=== PATIENT | male | born 1940 | race Caucasian/White ===

== ENCOUNTER → 2016-12-12 | Outpatient (CLI) | payer MEDICARE, BC ==
[2016-12-12 11:12] LABS: Basophils % (A) 1 %; CH 27.9; CHCM 32.6; Eosinophils # (A) 0.5 k/uL (0-0.7); Eosinophils % (A) 8 %; HCT 43.8 % (39.0-53.0); HDW 2.71; Luc # (Auto) 0.13; Luc % (Auto) 2; Lymphocytes # (A) 0.9 k/uL (1.0-4.8); Lymphocytes % (A) 14 %; MCH 27.6 pg (25.0-35.0); MCV 86.1 fL (80.0-100.0); Mean Platelet Volume 7.4; Monocytes # (A) 0.4 k/uL (0-1.0); Monocytes % (A) 6 %; Neutrophils # (A) 4.3 k/uL (1.3-7.7); Neutrophils % (A) 69 %; RBC 5.09 m/uL (4.30-5.90); RDW 13.6 % (11.5-15.5); WBC 6.2 k/uL (3.8-10.6); WBC (Perox) 6.21
[2016-12-12 11:25] LABS: Total Bilirubin 0.8 mg/dL (0.2-1.3)
== END | disposition home or self-care (01) ==
LOC: LABWHC1 10:32
PROVIDERS: ATTEND Dermatology
DX: L40.9 Psoriasis, unspecified (principal)
CPT/HCPCS: 36415; 82247; 82465; 84460; 84478; 85025

== ENCOUNTER → 2017-03-19 | Outpatient (CLI) | payer MEDICARE, BC ==
[2017-03-19 10:40] LABS: Appearance,Urine Clear (Clear); Bacteria,Urine Rare /hpf; Bilirubin,Urine Negative (Negative); Glucose,Urine (UA) Negative (Negative); Ketones,Urine Negative (Negative); Leukocyte Esterase,Urine Trace (Negative); Nitrite,Urine Negative (Negative); Particle Count 517; Protein,Urine Negative (Negative); RBC,Urine 1 /hpf (0-5); Specific Gravity,Urine 1.009 (1.001-1.035); UA Billing (MACRO vs. MICRO) MICRO; Urobilinogen,Urine <2.0 mg/dL (<2.0); WBC,Urine 1 /hpf (0-5)
[2017-03-19 10:45] LABS: Basophils # (A) 0.1 k/uL (0-0.2); Basophils % (A) 1 %; CH 28.1; CHCM 32.5; Eosinophils # (A) 0.8 k/uL (0-0.7); Eosinophils % (A) 14 %; HCT 43.9 % (39.0-53.0); HDW 2.68; HGB 14.1 gm/dL (13.0-17.5); Luc # (Auto) 0.16; Luc % (Auto) 3; Lymphocytes # (A) 0.9 k/uL (1.0-4.8); Lymphocytes % (A) 15 %; MCH 27.8 pg (25.0-35.0); MCV 86.7 fL (80.0-100.0); Mean Platelet Volume 7.4; Monocytes # (A) 0.4 k/uL (0-1.0); Monocytes % (A) 6 %; Neutrophils # (A) 3.6 k/uL (1.3-7.7); Neutrophils % (A) 62 %; RBC 5.07 m/uL (4.30-5.90); RDW 13.7 % (11.5-15.5); WBC 5.8 k/uL (3.8-10.6); WBC (Perox) 5.91
[2017-03-19 12:29] LABS: ALT 30 U/L (21-72); AST 33 U/L (17-59); Alkaline Phosphatase 77 U/L (38-126); Anion Gap 9 mmol/L; Blood Urea Nitrogen 9 mg/dL (9-20); Carbon Dioxide 29 mmol/L (22-30); Chloride 104 mmol/L (98-107); Glucose 108 mg/dL (74-99); Non-African American GFR(MDRD) >60 (>60 ml/min/1.73 sqM); Potassium 4.8 mmol/L (3.5-5.1); Sodium 142 mmol/L (137-145); Total Bilirubin 0.6 mg/dL (0.2-1.3)
--- NOTE | 2017-03-19 12:32 | XR ---
EXAMINATION TYPE: XR chest 2V DATE OF EXAM ORDERED: 03/19/2017 10:41 AM HISTORY: R05 cough. REFERENCE: None. FINDINGS: The lungs are clear. Pleural spaces are clear. Heart size is normal. IMPRESSION: NORMAL CHEST.
== END | disposition home or self-care (01) ==
LOC: LABPAT 09:14
PROVIDERS: ATTEND Urology
DX: Z01.818 Encounter for other preprocedural examination (principal); C64.2 Malignant neoplasm of left kidney, except renal pelvis; R05 Cough
CPT/HCPCS: 36415; 71020; 80053; 80061; 80076; 81001; 85025; 85652; 86850; 86900; 86901; 87086; 93005

== ENCOUNTER → 2017-03-19 | Outpatient (CLI) | payer MEDICARE, BC ==
[2017-03-19 18:18] LABS: Bilirubin, Delta 0.2 mg/dL (0.0-0.2); Total Bilirubin 0.4 mg/dL (0.2-1.3); Total Protein 6.7 g/dL (6.3-8.2)
== END | disposition home or self-care (01) ==
LOC: LABWHC1 09:16
PROVIDERS: ATTEND Dermatology
DX: L44.0 Pityriasis rubra pilaris (principal)
CPT/HCPCS: 36415; 80061; 80076; 85652

== ENCOUNTER 2017-03-26 06:01 | Inpatient (IN) | payer MEDICARE, BC ==
[~2017-03-26 06:01] MED LIST: FAMOTIDINE 20 MG/2 ML VIAL IV PRN; HYDROmorphone 1 MG/ML 1 ML SYRINGE IVP PRN; LIDOCAINE 1% 20 ML VIAL (10MG/ML) FOR IV START INTRADERMA PRN; MIDAZOLAM 2 MG/2 ML VIAL IV PRN; ONDANSETRON 4 MG/2 ML VIAL IVP ONE; Pre Op ABX Message 1 EACH MISC MISCELLANE ONE
[2017-03-26 06:55] LABS: Glucose,Whole Blood 100 mg/dL (75-99)
[2017-03-26] MEDS: LACTATED RINGERS 1,000 ML IV SCH (06:57)
[2017-03-26] MEDS ORDERED: MIDAZOLAM 2 MG/2 ML VIAL IVP ONE ×2 (07:10→07:34)
[2017-03-26] MEDS ORDERED: fentaNYL (PF) 50 MCG/ML 2 ML AMP IV ONE ×2 (07:12→07:34)
[2017-03-26] MEDS ORDERED: NALOXONE 0.4 MG/ML 1 ML VIAL IV PRN (07:26)
[2017-03-26] MEDS ORDERED: ONDANSETRON 4 MG/2 ML VIAL IVP ONE (07:30)
[2017-03-26] MEDS ORDERED: LIDOCAINE 1% INJ 10MG/ML (20 ML MDV) ONE (07:36)
[2017-03-26] MEDS ORDERED: PHENYLEPHRINE-0.9% NACL SYG 1 MG/10 ML SYRINGE ONE (07:36)
[2017-03-26] MEDS ORDERED: ROCURONIUM BROMIDE 10 MG/ML 10 ML VIAL IV ONE (07:36)
[2017-03-26] MEDS ORDERED: PROPOFOL 10 MG/ML 20 ML VIAL IV ONE (07:36)
[2017-03-26] MEDS ORDERED: ePHEDrine 50 MG/ML 1 ML AMP ONE (07:36)
[2017-03-26] MEDS ORDERED: SUCCINYLCHOLINE CHLORIDE 100 MG/5 ML SYR IV ONE (07:36)
[2017-03-26] MEDS ORDERED: LACTATED RINGERS 1,000 ML IV ONE ×2 (08:10→08:59)
--- NOTE | 2017-03-26 09:46 | P.OP ---
Date of Procedure: 03/26/17 Preoperative Diagnosis: Left renal mass Postoperative Diagnosis: Same Procedure(s) Performed: Left radical nephrectomy Implants: Anesthesia: GETA, epidural Surgeon: Lee Tucker Process Chemist #1: Nikko Moon Estimated Blood Loss (ml): 200 Pathology: other (Left kidney) Condition: stable Disposition: PACU Indications for Procedure: The patient is a 76-year-old gentleman who was at [facility] for evaluation and treatment of a skin disease. During the evaluation a computed tomography scan of the abdomen was obtained and a 5 cm mid renal mass extending into the renal hilum was identified. This was consistent with a renal cell carcinoma. He came to me as I am his urologist. We discussed and reviewed the computed tomography scan. He has a normal right kidney with good kidney function. He comes for a right radical nephrectomy. Operative Findings: Description of Procedure: The patient is brought to the operating suite and given a successful general endotracheal and anesthesia on the operating table. In the preop holding he was given an epidural anesthetic for perioperative and intraoperative pain control. Lew catheter is introduced sterilely. He is prepped and draped sterilely. A left subcostal incision is made. The rectus and oblique fascias are opened and the peritoneum is opened. The left colon is retracted medially by incising the white line of Toldt and then the neck of tissue between the colon and the gerotas fascia. We pull with then used the Bookwalter retractor for retraction. We identify the aorta, left renal vein and left gonadal vein. Place a 2-0 silk around the left renal vein. Inferior to the left renal vein as a left renal artery and we identify this and doubly ligated in 2-0 silk ties and a 2-0 silk suture ligature. Then doubly ligate the left renal vein again using 2-0 silk ties and 2-0 silk suture ligatures. I then cut both the artery and the vein. The cutting the vein I identified the left adrenal vein and placed 2-0 silk ties around it and transected. He then dissect superiorly alongside the aorta and then inferior to the adrenal gland through connective tissue, lymph yasir tissue and Gerota's fascia. In December inferiorly down the psoas margin and aorta removing lymph yaisr tissue with the specimen. We identified the left ureter and taken between hemoclips. We then identify the left gonadal vein and taken between 2-0 silk ties. We then dissect the kidney and drug's off the body wall. We move up the left lateral gutter until we identified the renal spleen ligaments. He is taken between clips. We then moved inferior to the pancreas and dissected the drug's off the body wall and the pancreas and remove the kidney from the wound. He was minimal bleeding throughout. We'll control minimal bleeding with electrocautery or hemoclips. There is no active bleeding thus we allow the colon to fall back up in the left upper quadrant. The omentum was pulled over it. The wounds closed in 2 layers of #1 Vicryl and the skin is stapled. The patient's awake and returned recovery in good condition. Blood loss is approximately 200 mL. Patient will be placed in the hospital postoperatively.
[2017-03-26] MEDS ORDERED: HYDROmorphone 1 MG/ML 1 ML SYRINGE IVP ONE (10:06)
[2017-03-26] MEDS: BUPIVACAINE (PF) 0.5% 50 ML, HYDROMORPHONE (PF) 5 MG in SODIUM CHLORIDE 0.9% 200 ML EPIDURAL PRN (10:18)
[2017-03-26 11:50] LABS: Glucose,Whole Blood 116 mg/dL (75-99)
[2017-03-26 11:57] VITALS: BMI 30.8
[2017-03-26] MEDS: INSULIN LISPRO (humaLOG) 300 UNIT/3 ML VIAL SQ SCH ×3 (12:52→20:30)
[2017-03-26] MEDS: SODIUM CHLORIDE 0.45% 1,000 ML IV SCH ×2 (16:24→16:27)
[2017-03-26] MEDS: TRIAMCINOLONE 0.1% CREAM 80 GM TUBE TOPICAL SCH (16:30)
[2017-03-26 17:07] LABS: Glucose,Whole Blood 134 mg/dL (75-99)
[2017-03-26] MEDS: LISINOPRIL 2.5 MG TAB PO SCH (20:24)
[2017-03-26] MEDS: DOXAZOSIN 4 MG TAB PO SCH (20:24)
[2017-03-26] MEDS: ATORVASTATIN 80 MG TAB PO SCH (20:24)
[2017-03-26 20:32] LABS: Glucose,Whole Blood 130 mg/dL (75-99)
--- NOTE | 2017-03-27 06:33 | P.PN ---
Subjective The patient underwent a left radical nephrectomy yesterday for left renal mass probable renal cell carcinoma. He did well overnight. His vital signs are stable. His urine output is good. His pain is controlled with the epidural. His incision is dry. His his abdomen is soft. I will continue with the epidural and liquid diet. He will start to ambulate. Objective - Vital Signs Vital signs: Vital Signs Temp 97.2 F L 03/27/17 01:08 Pulse 113 H 03/27/17 01:08 Resp 16 03/27/17 01:08 BP 109/53 03/27/17 01:08 Pulse Ox 95 03/27/17 01:08 Intake & Output 03/26/17 03/26/17 03/27/17 06:59 18:59 06:59 Intake Total 450 2150 1200 Output Total 610 200 Balance 450 1540 1000 Weight 92 kg Intake: IV 450 1850 Intake, IV Titration 1200 Amount Sodium Chloride 0.45% 1, 1200 000 ml @ 100 mls/hr IV . Q10H [facility] Rx#:[id number] Oral 300 Output: Urine 410 200 Estimated Blood Loss 200 Other: Voiding Method Indwelling Catheter Indwelling Catheter - Labs Labs: Abnormal Lab Results - Last 24 Hours (Table) 03/26/17 03/26/17 03/26/17 Range/Units 06:47 11:32 17:05 POC Glucose (mg/dL) 100 H 116 H 134 H (75-99) mg/dL 03/26/17 Range/Units 20:29 POC Glucose (mg/dL) 130 H (75-99) mg/dL
[2017-03-27 07:10] LABS: Glucose,Whole Blood 122 mg/dL (75-99)
[2017-03-27] MEDS: INSULIN LISPRO (humaLOG) 300 UNIT/3 ML VIAL SQ SCH ×3 (08:34→17:50)
[2017-03-27] MEDS: metFORMIN 850 MG TAB PO SCH (08:39)
[2017-03-27] MEDS: TRIAMCINOLONE 0.1% CREAM 80 GM TUBE TOPICAL SCH ×2 (08:39→21:19)
[2017-03-27] MEDS: LISINOPRIL 2.5 MG TAB PO SCH ×2 (08:39→21:19)
[2017-03-27] MEDS: SODIUM CHLORIDE 0.45% 1,000 ML IV SCH ×2 (08:42→15:42)
[2017-03-27] MEDS: LACTATED RINGERS 1,000 ML IV SCH (10:44)
--- NOTE | 2017-03-27 11:22 | P.PN ---
Progress Note - Text Postoperative day 1 status post left radical nephrectomy under general endotracheal anesthesia, and epidural catheter placement for postoperative analgesia, he is doing well, vital signs stable, currently he is on continuous infusion of bupivacaine/Dilaudid at 6 mL per hour, his VAS 0/10 , he had no motor deficit, epidural site okay, Assessment and plan= postoperative day one the decreased with pain control will continue the same management
[2017-03-27 11:33] LABS: Glucose,Whole Blood 162 mg/dL (75-99)
[2017-03-27 14:25] LABS: Calcium 9.3 mg/dL (8.4-10.2); Potassium 5.1 mmol/L (3.5-5.1)
[2017-03-27 16:33] LABS: Glucose,Whole Blood 135 mg/dL (75-99)
[2017-03-27] MEDS: ATORVASTATIN 80 MG TAB PO SCH (21:19)
[2017-03-27] MEDS: DOXAZOSIN 4 MG TAB PO SCH (21:19)
[2017-03-27 21:27] LABS: Glucose,Whole Blood 116 mg/dL (75-99)
[2017-03-27] MEDS: BUPIVACAINE (PF) 0.5% 50 ML, HYDROMORPHONE (PF) 5 MG in SODIUM CHLORIDE 0.9% 200 ML EPIDURAL PRN (21:51)
[2017-03-28] MEDS: INSULIN LISPRO (humaLOG) 300 UNIT/3 ML VIAL SQ SCH ×4 (00:49→17:26)
[2017-03-28 06:59] LABS: Glucose,Whole Blood 96 mg/dL (75-99)
[2017-03-28] MEDS: SODIUM CHLORIDE 0.45% 1,000 ML IV SCH ×2 (07:19→11:43)
[2017-03-28] MEDS ORDERED: MORPHINE SULFATE 2 MG/ML SYRINGE IVP PRN (07:43)
[2017-03-28 08:21] LABS: Basophils % (A) 0 %; CHCM 32.5; Eosinophils # (A) 0.2 k/uL (0-0.7); Eosinophils % (A) 2 %; HCT 38.5 % (39.0-53.0); HDW 2.64; HGB 12.5 gm/dL (13.0-17.5); Luc # (Auto) 0.17; Luc % (Auto) 2; Lymphocytes # (A) 0.7 k/uL (1.0-4.8); Lymphocytes % (A) 6 %; MCHC 32.4 g/dL (31.0-37.0); MCV 86.5 fL (80.0-100.0); Mean Platelet Volume 7.5; Monocytes # (A) 0.6 k/uL (0-1.0); Monocytes % (A) 5 %; Neutrophils # (A) 9.6 k/uL (1.3-7.7); Neutrophils % (A) 86 %; RBC 4.45 m/uL (4.30-5.90); RDW 13.9 % (11.5-15.5); WBC 11.2 k/uL (3.8-10.6); WBC (Perox) 11.38
[2017-03-28] MEDS: LISINOPRIL 2.5 MG TAB PO SCH ×2 (08:22→21:19)
[2017-03-28] MEDS: metFORMIN 850 MG TAB PO SCH (08:22)
[2017-03-28] MEDS: TRIAMCINOLONE 0.1% CREAM 80 GM TUBE TOPICAL SCH (08:27)
--- NOTE | 2017-03-28 08:46 | P.PN ---
Progress Note - Text Date: 03-28-17 Time: 715 The patient is status post left radical nephrectomy, postoperative day number[ 2] The patient has no complaints of nausea vomiting or headache. The patient does not complain of any lower extremity numbness or weakness. The epidural is running at 6 mL per hour. The epidural will be discontinued this a.m. per Dr. Tucker. Pain medicines will be provided to the patient by the service.
[2017-03-28 11:30] LABS: Glucose,Whole Blood 120 mg/dL (75-99)
[2017-03-28 17:27] LABS: Glucose,Whole Blood 112 mg/dL (75-99)
[2017-03-28] MEDS: ATORVASTATIN 80 MG TAB PO SCH (21:19)
[2017-03-28] MEDS: DOXAZOSIN 4 MG TAB PO SCH (21:19)
[2017-03-28 21:38] LABS: Glucose,Whole Blood 112 mg/dL (75-99)
[2017-03-29] MEDS: TRIAMCINOLONE 0.1% CREAM 80 GM TUBE TOPICAL SCH ×3 (05:03→20:39)
[2017-03-29] MEDS: INSULIN LISPRO (humaLOG) 300 UNIT/3 ML VIAL SQ SCH ×5 (05:03→20:56)
[2017-03-29] MEDS: SODIUM CHLORIDE 0.45% 1,000 ML IV SCH ×5 (05:04→16:17)
[2017-03-29 07:09] LABS: Glucose,Whole Blood 112 mg/dL (75-99)
[2017-03-29] MEDS: metFORMIN 850 MG TAB PO SCH (09:00)
[2017-03-29] MEDS: LISINOPRIL 2.5 MG TAB PO SCH ×2 (09:00→20:39)
--- NOTE | 2017-03-29 09:40 | P.PN ---
Progress Note - Text Patient is postop day #2 following left radical nephrectomy. He is afebrile and normotensive. His epidural catheter was removed yesterday and he says that he remains comfortable. He is tolerating liquids and a diet. His glucose this morning was 112. He denies any shortness of breath or chest pain. He does have some pedal edema which has been chronic. He required in and out catheterization yesterday which drained 400 mL but has been voiding this morning. A bladder scan will be checked to ensure that he is emptying his bladder completely. Physical exam: Abdomen-somewhat distended with gas. Incision is uninflamed. Ommy-wrtr-la-moderate pretibial edema. No calf tenderness Impression: Good recovery so far following left radical nephrectomy. Plan: The patient's diet and activity will be increased. It is planned that the patient will be discharged to a rehab facility on 03/31.
[2017-03-29] MEDS: ERYTHROMYCIN 0.5% EYE OINTMENT BOTH EYES SCH (10:35)
[2017-03-29] MEDS ORDERED: Acetaminophen-Codeine 300-30mg TAB PO PRN (10:54)
[2017-03-29] MEDS: ACITRETIN 25 MG PO SCH ×3 (11:29→11:36)
[2017-03-29] MEDS: ACITRETIN PO SCH ×2 (11:29→11:35)
[2017-03-29 11:34] LABS: Glucose,Whole Blood 114 mg/dL (75-99)
[2017-03-29] MEDS: TAMSULOSIN 0.4 MG CAP.ER.24H PO SCH (16:15)
[2017-03-29] MEDS: DOCUSATE 100 MG CAP PO SCH (16:16)
[2017-03-29 16:40] LABS: Glucose,Whole Blood 105 mg/dL (75-99)
[2017-03-29 20:14] LABS: Glucose,Whole Blood 96 mg/dL (75-99)
[2017-03-29] MEDS: DOXAZOSIN 4 MG TAB PO SCH (20:39)
[2017-03-29] MEDS: ATORVASTATIN 80 MG TAB PO SCH (20:39)
[2017-03-30 06:56] LABS: Glucose,Whole Blood 99 mg/dL (75-99)
[2017-03-30] MEDS: INSULIN LISPRO (humaLOG) 300 UNIT/3 ML VIAL SQ SCH ×4 (08:15→21:54)
[2017-03-30] MEDS: LISINOPRIL 2.5 MG TAB PO SCH ×2 (08:30→21:11)
[2017-03-30] MEDS: TRIAMCINOLONE 0.1% CREAM 80 GM TUBE TOPICAL SCH ×2 (08:30→21:12)
[2017-03-30] MEDS: DOCUSATE 100 MG CAP PO SCH ×2 (08:30→21:11)
[2017-03-30] MEDS: metFORMIN 850 MG TAB PO SCH (08:30)
[2017-03-30] MEDS: ERYTHROMYCIN 0.5% EYE OINTMENT BOTH EYES SCH (08:30)
[2017-03-30] MEDS: TAMSULOSIN 0.4 MG CAP.ER.24H PO SCH (08:30)
--- NOTE | 2017-03-30 10:22 | P.PN ---
Progress Note - Text Patient is afebrile. Blood pressure 140/69. The patient remains comfortable although he has not been ambulating much. He is tolerating a diet. He has no shortness of breath or cough. FBS this morning was 95. The patient's catheter was removed yesterday but his postvoid residuals again rising and a catheter was reinserted. The patient was started on tamsulosin. Abdomen: Obese but soft. There is some slight erythema and swelling in the lateral portion of the incision. There is no definite fluctuance and no discharge from this area. It's unclear whether this is an early wound infection or a seroma. Impression: #1 postoperative urinary retention #2 possible wound infection versus seroma Plan: He will be continued on tamsulosin and his catheter will be removed in the morning. Postvoid residual be checked later in the day. His wound will be reexamined tomorrow and if there is more induration than the incision may be opened slightly.
[2017-03-30] MEDS: SODIUM CHLORIDE 0.45% 1,000 ML IV SCH (11:03)
[2017-03-30 11:18] LABS: Glucose,Whole Blood 106 mg/dL (75-99)
[2017-03-30 16:35] LABS: Glucose,Whole Blood 102 mg/dL (75-99)
[2017-03-30] MEDS: DOXAZOSIN 4 MG TAB PO SCH (21:11)
[2017-03-30] MEDS: ATORVASTATIN 80 MG TAB PO SCH (21:11)
[2017-03-30 21:27] LABS: Glucose,Whole Blood 111 mg/dL (75-99)
[2017-03-31 07:35] LABS: Glucose,Whole Blood 90 mg/dL (75-99)
--- NOTE | 2017-03-31 07:40 | P.PN ---
Subjective Principal diagnosis: The patient is postop left radical nephrectomy. He is slowly recuperating. Started to ambulate yesterday. He had 3 good bowel movement chest today. The left lateral incision is slightly erythematous and swollen but there is no fluctuance. I will continue to observe this. equipment services associate will be contacted to aid in this patient's postoperative care as he probably will need rehab. He doesn't feel he can care for himself as he lives alone. I will discontinue his Lew. His pathology report showed a renal cell carcinoma with negative lymph node. Objective - Vital Signs Vital signs: Vital Signs Temp 98.1 F 03/31/17 03:25 Pulse 79 03/31/17 03:25 Resp 16 03/31/17 03:25 BP 144/71 03/31/17 03:25 Pulse Ox 93 L 03/31/17 03:25 Intake & Output 03/30/17 03/31/17 03/31/17 18:59 06:59 18:59 Intake Total 836 Output Total 2300 1300 Balance -1464 -1300 Intake: Oral 836 Output: Urine 2300 1300 Straight 300 Other: Voiding Method Indwelling Catheter # Bowel Movements 1 - Labs CBC & Chem 7: 03/28/17 08:06 03/27/17 07:04 Labs: Abnormal Lab Results - Last 24 Hours (Table) 03/30/17 03/30/17 03/30/17 Range/Units 11:10 16:30 21:25 POC Glucose (mg/dL) 106 H 102 H 111 H (75-99) mg/dL
[2017-03-31] MEDS: LISINOPRIL 2.5 MG TAB PO SCH ×2 (07:48→22:06)
[2017-03-31] MEDS: INSULIN LISPRO (humaLOG) 300 UNIT/3 ML VIAL SQ SCH ×4 (07:49→23:20)
[2017-03-31] MEDS: TAMSULOSIN 0.4 MG CAP.ER.24H PO SCH (07:49)
[2017-03-31] MEDS: metFORMIN 850 MG TAB PO SCH (07:49)
[2017-03-31] MEDS: DOCUSATE 100 MG CAP PO SCH ×2 (07:49→22:06)
[2017-03-31] MEDS: ERYTHROMYCIN 0.5% EYE OINTMENT BOTH EYES SCH (07:50)
[2017-03-31 11:38] LABS: Glucose,Whole Blood 101 mg/dL (75-99)
[2017-03-31] MEDS: SODIUM CHLORIDE 0.45% 1,000 ML IV SCH (14:18)
[2017-03-31] MEDS: TRIAMCINOLONE 0.1% CREAM 80 GM TUBE TOPICAL SCH ×2 (14:18→23:20)
[2017-03-31 16:24] LABS: Glucose,Whole Blood 100 mg/dL (75-99)
[2017-03-31 21:18] LABS: Glucose,Whole Blood 104 mg/dL (75-99)
[2017-03-31] MEDS: DOXAZOSIN 4 MG TAB PO SCH (22:06)
[2017-03-31] MEDS: ATORVASTATIN 80 MG TAB PO SCH (22:06)
--- NOTE | 2017-04-01 06:52 | P.DS ---
Providers Date of admission: 03/26/17 06:01 Attending physician: Lee Tucker Primary care physician: [facility] Course: The patient is a 75-year-old gentleman who is coincidentally identified to have a intraparenchymal left renal mass. He was admitted for a left radical nephrectomy which she underwent without difficulty. Postoperatively the patient slowly progressed. An epidural was used for 48 hours to control his pain. This was discontinued. He has required no pain medicine since. His diet has been advanced and he is now tolerating a regular diet. His activity is ambulating. He has a small superficial erosion on the buttocks in the back from tape. He has a chronic skin disease that exfoliate regularly. He developed a wound infection in the lateral aspect of his incision that was cultured and drained. 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 Patient is going to [facility] for approximately 1 week as he lives alone and he is not ready to care for himself. He seen in the office next week to check his wound and remove the rest of the rashi. It is regular activities Limited he may shower condition is stable Patient Condition at Discharge: Stable Plan - Discharge Summary New Discharge Prescriptions: No Action Lisinopril [Zestril] 2.5 mg PO BID Triamcinolone 0.1% Cream [Kenalog] 1 applicatio TOPICAL BID metFORMIN HCL [Metformin HCl] 850 mg PO DAILY Rosuvastatin Calcium [Crestor] 40 mg PO HS Acitretin 50 mg PO QAM Acitretin 25 mg PO HS Doxazosin Mesylate [Cardura] 4 mg PO HS Petrolatum, White 1 applic TOPICAL BID Erythromycin Ophth Oint [Romycin Ophth Oint] 1 applic BOTH EYES DAILY Discharge Medication List Acitretin 25 mg PO HS 03/19/17 [History] Acitretin 50 mg PO QAM 03/19/17 [History] Doxazosin Mesylate [Cardura] 4 mg PO HS 03/19/17 [History] Lisinopril [Zestril] 2.5 mg PO BID 03/19/17 [History] Petrolatum, White 1 applic TOPICAL BID 03/19/17 [History] Rosuvastatin Calcium [Crestor] 40 mg PO HS 03/19/17 [History] Triamcinolone 0.1% Cream [Kenalog] 1 applicatio TOPICAL BID 03/19/17 [History] metFORMIN HCL [Metformin HCl] 850 mg PO DAILY 03/19/17 [History] Erythromycin Ophth Oint [Romycin Ophth Oint] 1 applic BOTH EYES DAILY 03/29/17 [ History] Follow up Appointment(s)/Referral(s): Lee Tucker MD [STAFF PHYSICIAN] - 04/07/17 Activity/Diet/Wound Care/Special [facility] patient will need dressing changes to his small wound infection on the lateral aspect of his incision. He should have this packed twice daily with iodoform gauze covered with a 4 x 4 gauze. He may shower and then the wound should be repacked after showering. He may resume all his home medications. He should take Tylenol extra strength due to tabs every 4 hours as needed for pain. I would like to see him in the office next Friday. Discharge Disposition: TRANSFER TO SNF/F
[2017-04-01 06:57] LABS: Glucose,Whole Blood 89 mg/dL (75-99)
[2017-04-01 07:39] VITALS: BP 127/71; PULSE 78; RESP 14; TEMP 98.5
[2017-04-01] MEDS: INSULIN LISPRO (humaLOG) 300 UNIT/3 ML VIAL SQ SCH (07:52)
[2017-04-01] MEDS: ERYTHROMYCIN 0.5% EYE OINTMENT BOTH EYES SCH (07:58)
[2017-04-01] MEDS: LISINOPRIL 2.5 MG TAB PO SCH (07:58)
[2017-04-01] MEDS: TAMSULOSIN 0.4 MG CAP.ER.24H PO SCH (07:58)
[2017-04-01] MEDS: DOCUSATE 100 MG CAP PO SCH (07:58)
[2017-04-01] MEDS: metFORMIN 850 MG TAB PO SCH (07:58)
[2017-04-01] MEDS: TRIAMCINOLONE 0.1% CREAM 80 GM TUBE TOPICAL SCH (08:02)
[2017-04-01] MEDS: SODIUM CHLORIDE 0.45% 1,000 ML IV SCH (08:05)
== END 2017-04-01 11:58 | DRG 658 ==
LOC: 2ORMAIN 06:01 → 3SUR 09:33
PROVIDERS: ADMIT Urology; ATTEND Urology
PROC: 0TT10ZZ Resection of Left Kidney, Open Approach (ICD-10-PCS; principal; 2017-03-26 07:30)
DX: C64.2 Malignant neoplasm of left kidney, except renal pelvis (principal); E11.9 Type 2 diabetes mellitus without complications; I10 Essential (primary) hypertension; Z79.899 Other long term (current) drug therapy; Z79.84 Long term (current) use of oral hypoglycemic drugs; E78.00 Pure hypercholesterolemia, unspecified; Z87.891 Personal history of nicotine dependence; L98.9 Disorder of the skin and subcutaneous tissue, unspecified; R33.8 Other retention of urine
CPT/HCPCS: 80048; 83036; 85025; 86850; 86900; 86901; 87070; 87075; 87077; 87186; 87205; 88307; 94760

== ENCOUNTER → 2018-03-13 | Outpatient (CLI) | payer MEDICARE, BC ==
--- NOTE | 2018-03-14 09:55 | CT ---
EXAMINATION TYPE: CT abdomen wo con DATE OF EXAM: 03/13/2018 COMPARISON: CT abdomen from outside institution dated 02/14/2017 HISTORY: Follow up Renal cancer. CT DLP: 702.2 mGycm Automated exposure control for dose reduction was used. TECHNIQUE: Helical acquisition of images was performed from the lung bases through the top of iliac crest to include entire abdomen. CONTRAST: Performed without Oral Contrast and without IV contrast. FINDINGS: Lack of contrast could compromise sensitivity LUNG BASES: No significant abnormality is appreciated. LIVER/GB: Patient is post cholecystectomy. Liver is stable. PANCREAS: No significant abnormality is seen. SPLEEN: No significant abnormality is seen. ADRENALS: No significant abnormality is seen. KIDNEYS: There is been interval removal of the left kidney. Surgical clips are present in the left re nal fossa. There is a punctate calcification again noted at the lower pole of the right kidney. BOWEL: Duodenal diverticulum suspected at the head of the pancreas as on prior. LYMPH NODES: No significan abnormality is appreciated. OSSEOUS STRUCTURES: No significant interval change, degenerative disc disease present at the lower l umbar spine with vacuum phenomenon.. FREE AIR: No Free Air visible ASCITES: None visible. RETROPERITONEAL ADENOPATHY: No Retroperitoneal Adenopathy visible. OTHER: Aorta shows normal caliber. Atheromatous changes present, the appearance is stable. IMPRESSION: INTERVAL LEFT NEPHRECTOMY.
== END | disposition home or self-care (01) ==
LOC: RADCTMAIN 17:08
PROVIDERS: ATTEND Urology
DX: C64.2 Malignant neoplasm of left kidney, except renal pelvis (principal); Z90.5 Acquired absence of kidney
CPT/HCPCS: 74150

== ENCOUNTER → 2018-05-15 | Outpatient (CLI) | payer MEDICARE, BC ==
--- NOTE | 2018-05-15 10:22 | US ---
EXAMINATION TYPE: US kidneys/renal and bladder DATE OF EXAM: 05/15/2018 COMPARISON: CT abdomen March 13, 2018 CLINICAL HISTORY: R31.9 Hematuria; left nephrectomy 2017 EXAM MEASUREMENTS: Right Kidney: 11.3 x 7.2 x 4.9 cm Left Kidney: surgically removed Post Void Residual Volume: 27.7 mL on second post void as patient had voided prior to US Right Kidney: mid cortex hyperechoic focus is noted; no mid to lower pole calcification is identified by US today Left Kidney: surgically absent Bladder: patient voided prior to US and volume > 50ml, but wnl on second post void Right Ureteral Jet was seen: Normal Post Void Residual: yes, on second post void Prominent prostate with internal calcifications noted on bladder survey There is no evidence for hydronephrosis at this point in time. Bladder is poorly distended and thus suboptimally evaluated. Prominent prostate gland bulging on bladder base is noted. Technologist aceves 3 mm hyperechoic focus upper to mid pole level which does not show corresponding calculus on CT, the re is 4 mm calculus lower pole level on CT not clearly identified on ultrasound. 2 images of left taqueria al fossa show no suspicious recurrent mass. IMPRESSION: Previously visualized 4 mm calculus lower pole level right kidney on CT is not clearly seen on ultras ound. Probable enlarged prostate or BPH. Correlate clinically.
== END | disposition home or self-care (01) ==
LOC: RADUSWWP 08:31
PROVIDERS: ATTEND Urology
DX: R31.9 Hematuria, unspecified (principal)
CPT/HCPCS: 76770

== ENCOUNTER → 2019-05-05 | Outpatient (CLI) | payer MEDICARE, BC ==
--- NOTE | 2019-05-05 12:58 | CT ---
EXAMINATION TYPE: CT abdomen pelvis wo con DATE OF EXAM: 05/05/2019 HISTORY: Malignant neoplasm of left kidney CT DLP: 817.0 mGycm. Automated Exposure Control for Dose Reduction was Utilized. TECHNIQUE: CT scan of the abdomen and pelvis is performed without oral or IV contrast. COMPARISON: CT abdomen March 13, 2018 FINDINGS: Within the limitations of a non-contrast study, the following observations are made. LUNG BASES: Lung bases show new groundglass opacity and increased interstitial markings suggesting mi ld alveolar and interstitial edema bilaterally, correlate clinically for fluid overload state or CHF exacerbation. Heart size is mildly enlarged. Coronary artery calcification is present. LIVER/GB: Cholecystectomy clips are noted. PANCREAS: No significant abnormality is seen. SPLEEN: No significant abnormality is seen. ADRENALS: No significant abnormality is seen. KIDNEYS: Left kidney is surgically absent. Right kidney shows stable 4 mm calculus lower pole level a xial image 68. Bladder wall is mild to moderately thickened anteriorly superiorly, presumed related t o outlet obstruction from BPH. Correlate clinically. BOWEL: There is 1.9 cm duodenal diverticulum mesenteric surface near junction of second and third por tion coronal image 42. GENITAL ORGANS: Enlarged prostate gland with some peripheral calcifications is present with bulging o f bladder base, underlying BPH is present, correlate clinically.. LYMPH NODES: No greater than 1cm abdominal or pelvic lymph nodes are appreciated. OSSEOUS STRUCTURES: Lnzvltjo-ie-dqcnuo disc space narrowing and vacuum disc phenomenon L5-S1 level. M oderate multilevel anterior lateral spurring in the thoracic spine. OTHER: No significant additional abnormality is seen. IMPRESSION: Left-sided nephrectomy changes redemonstrated. No new mass or adenopathy identified on no ncontrast CT to suggest neoplastic recurrence.
== END | disposition home or self-care (01) ==
LOC: RADCTMAIN 10:34
PROVIDERS: ATTEND Urology
DX: C64.2 Malignant neoplasm of left kidney, except renal pelvis (principal); Z90.5 Acquired absence of kidney
CPT/HCPCS: 74176

== ENCOUNTER → 2021-04-17 | Outpatient (CLI) | payer MEDICARE, BC ==
--- NOTE | 2021-04-17 09:50 | CT ---
EXAMINATION TYPE: CT abdomen pelvis wo con DATE OF EXAM: 04/17/2021 COMPARISON: 05/05/2019 HISTORY: Right groin pain, neoplasm of uncertain behavior of unspecified region CT DLP: 967 mGycm Examination of the solid and hollow viscera is limited given the lack of contrast. FINDINGS: LUNG BASES: No evidence for nodule. No evidence for infiltrate. LIVER/GB: The gallbladder surgically absent. No space-occupying hepatic lesion. PANCREAS: No pancreatic mass identified. No inflammatory process seen. SPLEEN: No evidence for splenomegaly. No intrasplenic lesions seen. ADRENALS: No adrenal nodules identified. No evidence for thickening. KIDNEYS: Left-sided nephrectomy change. No evidence for recurrent or residual mass. Nonobstructing 3 mm calculus lower pole right kidney. No evidence for right-sided hydronephrosis or renal mass. Nonspe cific urinary bladder wall thickening anteriorly may be related to poor distention. Overall appearanc e is unchanged. BOWEL: Appendix has a normal appearance. No evidence of bowel obstruction. No inflammatory process. Lymph nodes: No evidence for adenopathy greater than 1 cm. Abdominal aorta: Atheromatous changes seen. No evidence for aneurysm. Genital organs: Severe prostate calcifications. Other: No significant abnormality. IMPRESSION: 1. Status post left-sided nephrectomy without evidence for recurrent or residual mass. 2. Nonobstructing calculus right kidney. 3. Mild urinary bladder wall thickening stable relative to prior examination.
== END | disposition home or self-care (01) ==
LOC: RADCTMAIN 09:02
PROVIDERS: ATTEND Urology
DX: D48.9 Neoplasm of uncertain behavior, unspecified (principal); N20.0 Calculus of kidney; Z90.5 Acquired absence of kidney
CPT/HCPCS: 74176

== ENCOUNTER 2021-05-05 16:22 | Emergency (ER) | payer MEDICARE, BC ==
[2021-05-05] MEDS ORDERED: MORPHINE SULFATE 2 MG/ML SYRINGE IVP STA (16:58)
[2021-05-05] MEDS ORDERED: SODIUM CHLORIDE 0.9% 500 ML 500 ML IV STA (16:58)
[2021-05-05] MEDS ORDERED: ONDANSETRON 4 MG/2 ML VIAL IVP STA (16:58)
[2021-05-05 17:08] VITALS: TEMP 97.8
--- NOTE | 2021-05-05 17:09 | ED ---
General Adult HPI - General Stated complaint: ABD pain Time Seen by Provider: 05/05/21 16:43 Source: RN notes reviewed - History of Present Illness Initial comments: 81-year-old male with a past medical history of renal cancer with resection, diabetes mellitus, hyperlipidemia, hypertension, cholecystectomy presents to the emergency room for a chief complaint of abdominal pain. Patient reports he has right-sided abdominal pain. This has been ongoing for about 2 hours now. Patient states it started when he went out to dinner before he started eating. He does admit to nausea, denies vomiting. Patient denies chest pain or shortness of breath. Denies diarrhea. Denies fevers. Patient has no other complaints at this time including shortness of breath, chest pain, nausea or vomiting, headache, or visual changes. - Related Data Home Medications Medication Instructions Recorded Confirmed Rosuvastatin Calcium [Crestor] 40 mg PO HS 03/19/17 05/05/21 lisinopriL [Zestril] 2.5 mg PO TID 03/19/17 05/05/21 Tamsulosin HCl [Flomax] 0.4 mg PO HS 05/05/21 05/05/21 metFORMIN HCL [Glucophage] 500 mg PO DAILY 05/05/21 05/05/21 Allergies Allergy/AdvReac Type Severity Reaction Status Date / Time latex Allergy Unknown IRRITATED Verified 05/05/21 19:58 SKIN Review of Systems ROS Statement: Those systems with pertinent positive or pertinent negative responses have been documented in the HPI. ROS Other: All systems not noted in ROS Statement are negative. 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 , ENLARGED PROSTATE., CONJUNCTIVA RED AND EYES WATER- PT STATES APPT TO SEE EYE History of Any Multi-Drug Resistant Organisms: None Reported Past Surgical History: Cholecystectomy Additional Past Surgical History / Comment(s): TOE SURGERY, COLONOSCOPY Past Anesthesia/Blood Transfusion Reactions: No Reported Reaction Past Psychological History: No Psychological Hx Reported Smoking Status: Never smoker Past Alcohol Use History: Rare Past Drug Use History: None Reported - Past Family History Mother Family Medical History: No Reported History General Exam General appearance: alert, in no apparent distress Head exam: Present: atraumatic, normocephalic, normal inspection Eye exam: Present: normal appearance, PERRL, EOMI. Absent: scleral icterus, conjunctival injection, periorbital swelling ENT exam: Present: normal exam, mucous membranes moist Neck exam: Present: normal inspection, full ROM. Absent: tenderness, mening ismus, lymphadenopathy Respiratory exam: Present: normal lung sounds bilaterally. Absent: respiratory distress, wheezes, rales, rhonchi, stridor Cardiovascular Exam: Present: regular rate, normal rhythm, normal heart sounds. Absent: systolic murmur, diastolic murmur, rubs, gallop, clicks GI/Abdominal exam: Present: soft, tenderness (minimal right sided mid abdominal tenderness), normal bowel sounds. Absent: distended, guarding, rebound, rigid Neurological exam: Present: alert Course Vital Signs 05/05/21 16:59 Temperature 97.8 F Pulse Rate 62 Respiratory 16 Rate Blood Pressure 129/68 O2 Sat by Pulse 98 Oximetry EKG Findings - EKG Comments: EKG Findings:: Sinus bradycardia, ventricular rate 58, AK interval 146, QTC 382 Medical Decision Making - Medical Decision Making Vitals are stable. CBC CMP unremarkable. Urinalysis is negative for obvious infection. Troponin is negative. EKG is nonischemic. CT abdomen and pelvis shows no acute abnormality. Patient was given pain medication and had signifi cant improvement in symptoms. At this time patient can be discharged home to follow up with primary care as there is no obvious emergent cause. However if he has any worsening symptoms he will return to the ER. - Lab Data Result diagrams: 05/05/21 17:11 05/05/21 17:11 Lab Results 05/05/21 05/05/21 05/05/21 Range/Units 17:11 17:11 17:11 WBC 10.0 (3.8-10.6) k/uL RBC 4.99 (4.30-5.90) m/uL Hgb 14.6 (13.0-17.5) gm/dL Hct 41.9 (39.0-53.0) % MCV 83.9 (80.0-100.0) fL MCH 29.2 (25.0-35.0) pg MCHC 34.8 (31.0-37.0) g/dL RDW 13.0 (11.5-15.5) % Plt Count 141 L (150-450) k/uL MPV 8.6 Neutrophils % 84 % Lymphocytes % 8 % Monocytes % 5 % Eosinophils % 2 % Basophils % 0 % Neutrophils # 8.5 H (1.3-7.7) k/uL Lymphocytes # 0.8 L (1.0-4.8) k/uL Monocytes # 0.5 (0-1.0) k/uL Eosinophils # 0.2 (0-0.7) k/uL Basophils # 0.0 (0-0.2) k/uL Sodium 140 (137-145) mmol/L Potassium 5.1 (3.5-5.1) mmol/L Chloride 104 (98-107) mmol/L Carbon Dioxide 27 (22-30) mmol/L Anion Gap 9 mmol/L BUN 28 H (9-20) mg/dL Creatinine 1.47 H (0.66-1.25) mg/dL Est GFR (CKD-EPI)AfAm 51 (>60 ml/min/1.73 sqM) Est GFR (CKD-EPI)NonAf 44 (>60 ml/min/1.73 sqM) Glucose 138 H (74-99) mg/dL Plasma Lactic Acid Asad (0.7-2.0) mmol/L Calcium 10.4 H (8.4-10.2) mg/dL Total Bilirubin 0.3 (0.2-1.3) mg/dL AST 30 (17-59) U/L ALT 20 (4-49) U/L Alkaline Phosphatase 82 (38-126) U/L Troponin I (0.000-0.034) ng/mL Total Protein 7.2 (6.3-8.2) g/dL Albumin 4.5 (3.5-5.0) g/dL Amylase 105 (30-110) U/L Lipase 175 (23-300) U/L Urine Color Yellow Urine Appearance Clear (Clear) Urine pH 6.5 (5.0-8.0) Ur Specific [place] 1.018 (1.001-1.035) Urine Protein Trace H (Negative) Urine Glucose (UA) Negative (Negative) Urine Ketones Negative (Negative) Urine Blood Negative (Negative) Urine Nitrite Negative (Negative) Urine Bilirubin Negative (Negative) Urine Urobilinogen <2.0 (<2.0) mg/dL Ur Leukocyte Esterase Large H (Negative) Urine RBC 1 (0-5) /hpf Urine WBC 12 H (0-5) /hpf Amorphous Sediment Rare H (None) /hpf Hyaline Casts 9 H (0-2) /lpf 05/05/21 05/05/21 Range/Units 17:11 17:11 WBC (3.8-10.6) k/uL RBC (4.30-5.90) m/uL Hgb (13.0-17.5) gm/dL Hct (39.0-53.0) % MCV (80.0-100.0) fL MCH (25.0-35.0) pg MCHC (31.0-37.0) g/dL RDW (11.5-15.5) % Plt Count (150-450) k/uL MPV Neutrophils % % Lymphocytes % % Monocytes % % Eosinophils % % Basophils % % Neutrophils # (1.3-7.7) k/uL Lymphocytes # (1.0-4.8) k/uL Monocytes # (0-1.0) k/uL Eosinophils # (0-0.7) k/uL Basophils # (0-0.2) k/uL Sodium (137-145) mmol/L Potassium (3.5-5.1) mmol/L Chloride (98-107) mmol/L Carbon Dioxide (22-30) mmol/L Anion Gap mmol/L BUN (9-20) mg/dL Creatinine (0.66-1.25) mg/dL Est GFR (CKD-EPI)AfAm (>60 ml/min/1.73 sqM) Est GFR (CKD-EPI)NonAf (>60 ml/min/1.73 sqM) Glucose (74-99) mg/dL Plasma Lactic Acid Asad 1.3 (0.7-2.0) mmol/L Calcium (8.4-10.2) mg/dL Total Bilirubin (0.2-1.3) mg/dL AST (17-59) U/L ALT (4-49) U/L Alkaline Phosphatase (38-126) U/L Troponin I <0.012 (0.000-0.034) ng/mL Total Protein (6.3-8.2) g/dL Albumin (3.5-5.0) g/dL Amylase (30-110) U/L Lipase (23-300) U/L Urine Color Urine Appearance (Clear) Urine pH (5.0-8.0) Ur Specific [place] (1.001-1.035) Urine Protein (Negative) Urine Glucose (UA) (Negative) Urine Ketones (Negative) Urine Blood (Negative) Urine Nitrite (Negative) Urine Bilirubin (Negative) Urine Urobilinogen (<2.0) mg/dL Ur Leukocyte Esterase (Negative) Urine RBC (0-5) /hpf Urine WBC (0-5) /hpf Amorphous Sediment (None) /hpf Hyaline Casts (0-2) /lpf Disposition Clinical Impression: Abdominal pain Disposition: HOME SELF-CARE Condition: Good Instructions (If sedation given, give patient instructions): Abdominal Pain (ED) Additional Instructions: Please follow-up with primary care in 1-2 days. Return to the emergency room for any worsening symptoms. Is patient prescribed a controlled substance at d/c from ED?: No Referrals: Clarence Qureshi DO [Primary Care Provider] - 1-2 days Time of Disposition: 20:45
[2021-05-05 17:40] LABS: Basophils % (A) 0 %; Eosinophils # (A) 0.2 k/uL (0-0.7); Eosinophils % (A) 2 %; HCT 41.9 % (39.0-53.0); HGB 14.6 gm/dL (13.0-17.5); Lymphocytes # (A) 0.8 k/uL (1.0-4.8); Lymphocytes % (A) 8 %; MCH 29.2 pg (25.0-35.0); MCHC 34.8 g/dL (31.0-37.0); MCV 83.9 fL (80.0-100.0); Mean Platelet Volume 8.6; Monocytes # (A) 0.5 k/uL (0-1.0); Monocytes % (A) 5 %; Neutrophils # (A) 8.5 k/uL (1.3-7.7); Neutrophils % (A) 84 %; Platelet Count 141 k/uL (150-450); RBC 4.99 m/uL (4.30-5.90)
[2021-05-05 17:52] LABS: Albumin 4.5 g/dL (3.5-5.0); Calcium 10.4 mg/dL (8.4-10.2); Potassium 5.1 mmol/L (3.5-5.1); Total Bilirubin 0.3 mg/dL (0.2-1.3); Total Protein 7.2 g/dL (6.3-8.2)
[2021-05-05 18:03] LABS: Amorphous Sediment,Urine Rare /hpf; Appearance,Urine Clear (Clear); Bilirubin,Urine Negative (Negative); Blood,Urine Negative (Negative); Color,Urine Yellow; Glucose,Urine (UA) Negative (Negative); Hyaline Casts,Urine 9 /lpf (0-2); Ketones,Urine Negative (Negative); Leukocyte Esterase,Urine Large (Negative); Nitrite,Urine Negative (Negative); PH, Urine 6.5 (5.0-8.0); Protein,Urine Trace (Negative); RBC,Urine 1 /hpf (0-5); Specific Gravity,Urine 1.018 (1.001-1.035); Urobilinogen,Urine <2.0 mg/dL (<2.0); WBC,Urine 12 /hpf (0-5)
--- NOTE | 2021-05-05 19:55 | CT ---
EXAMINATION TYPE: CT abdomen pelvis wo con DATE OF EXAM: 05/05/2021 COMPARISON: 04/17/2021. HISTORY: right mid abd pain CT DLP: 773.8 mGycm Automated exposure control for dose reduction was used. TECHNIQUE: Helical acquisition of images was performed from the lung bases through the pelvis. FINDINGS: LUNG BASES: No significant abnormality is appreciated. LIVER/GB: No significant abnormality is appreciated. Cholecystectomy noted. PANCREAS: No significant abnormality is seen. SPLEEN: No significant abnormality is seen. ADRENALS: No significant abnormality is seen. KIDNEYS: Stable left nephrectomy. 3 mm obstructing right renal lower pole calculus. No right hydronep hrosis. FREE AIR: No free air is visualized RETROPERITONEAL ADENOPATHY: None visualized REPRODUCTIVE ORGANS: No significant abnormality is seen URINARY BLADDER: No significant abnormality is seen. Stable enlarged prostate with dystrophic calcif ications seen. PELVIC ADENOPATHY: None visualized. OSSEOUS STRUCTURES: No significant abnormality is seen. BOWEL: No significant abnormality is seen. Normal appendix. OTHER: None IMPRESSION: NO ACUTE ABNORMALITY. CHRONIC CHANGES ABOVE.
[2021-05-05 22:05] VITALS: BP 119/74; PULSE 64; RESP 18
== END 2021-05-05 21:30 | disposition home or self-care (01) ==
LOC: EC 16:22
DX: R10.9 Unspecified abdominal pain (principal); R11.0 Nausea; I10 Essential (primary) hypertension; E11.9 Type 2 diabetes mellitus without complications; E78.5 Hyperlipidemia, unspecified; N40.0 Benign prostatic hyperplasia without lower urinary tract symptoms; Z85.528 Personal history of other malignant neoplasm of kidney; Z79.84 Long term (current) use of oral hypoglycemic drugs; Z90.49 Acquired absence of other specified parts of digestive tract; Z91.040 Latex allergy status
CPT/HCPCS: 51798; 36415; 80053; 82150; 83605; 83690; 84484; 85025; 81001; 87086; 74176; 99284; 96374; 96375; J2405; J2270

== ENCOUNTER → 2021-09-19 | Outpatient (CLI) | payer MEDICARE, BC ==
--- NOTE | 2021-09-19 10:15 | CT ---
EXAMINATION TYPE: CT brain wo con DATE OF EXAM: 09/19/2021 COMPARISON: None HISTORY: Recent fall CT DLP: [address] of the brain was performed. The ventricles, basal cisterns and sulci overlying the cerebral convexities demonstrate mild enlargem ent. There is no evidence for intracranial hemorrhage or sulcal effacement. There is decreased attenuation about the periventricular white matter and deep white matter of both c erebral hemispheres, compatible with chronic small vessel ischemia. Differential diagnosis does inclu de demyelination. No mass effects are seen.No midline shift. Osseous calvarium is intact. If symptoms persist consider MRI. IMPRESSION: 1. Age related atrophic and chronic small vessel ischemic change without acute intracranial process s een at this time.
--- NOTE | 2021-09-19 10:17 | CT ---
EXAMINATION TYPE: CT facial bones wo con DATE OF EXAM: 09/19/2021 COMPARISON: None HISTORY: Recent fall CT DLP: [address] of the facial bones was performed in the axial and coronal planes. Bone and soft tissu e window settings are submitted. No significant soft tissue swelling is appreciated. I do not see evidence for displaced facial bone fracture or depressed facial bone fracture. The globes are intact. Paranasal sinuses are well-aerated. IMPRESSION: 1. No evidence for depressed or displaced facial bone fracture.
--- NOTE | 2021-09-19 10:35 | XR ---
Right hand HISTORY: Pain 3 views the right hand Joint space loss is present at the interphalangeal joints, metacarpophalangeal joints. Alignment is m aintained. Bone mineralization mildly reduced. No fracture or dislocation. There is some marginal spu rring, subchondral eburnation present at the interphalangeal joints distally. Hypertrophic change pre sent at the carpometacarpal joint of the first digit. IMPRESSION: Osteoarthritis.
== END | disposition home or self-care (01) ==
LOC: RADCTMAIN 09:14
PROVIDERS: ATTEND Family Medicine
DX: M19.041 Primary osteoarthritis, right hand (principal)
CPT/HCPCS: 70450; 70486

== ENCOUNTER → 2022-05-13 | Outpatient (CLI) | payer MEDICARE, BC ==
--- NOTE | 2022-05-13 14:46 | CT ---
EXAMINATION TYPE: CT abdomen wo con CT DLP: 643 mGycm, Automated exposure control for dose reduction was used. DATE OF EXAM: 05/13/2022 2:00 PM COMPARISON: CT abdomen pelvis most recent 05/05/2021 CLINICAL INDICATION:Male, 82 years old with history of C64.2 RENAL CANCER; f/u renal ca TECHNIQUE: Axial CT of the abdomen. [facility] used: None Oral contrast used: without Oral Contrast FINDINGS: LOWER CHEST: Unremarkable ABDOMEN LIVER: Unremarkable GALLBLADDER AND BILE DUCTS: Gallbladder is surgically absent with mild intrahepatic and extra hepatic biliary dilatation likely physiologic and a postcholecystectomy change. No evidence of choledocholit hiasis. PANCREAS: Unremarkable. SPLEEN: Unremarkable. ADRENAL GLANDS: Unremarkable. KIDNEYS AND URETERS: The left kidney is surgically absent. No evidence of abnormal soft tissue in the surgical bed. No evidence of right hydronephrosis. There is a nonobstructing calculus measuring 3 mm . ABDOMEN & PELVIS STOMACH AND BOWEL: No evidence of bowel obstruction. Appendix is normal. Few scattered clonic diverti cula present. Second portion duodenal diverticulum. PERITONEUM: No evidence of pneumoperitoneum or free fluid. VASCULATURE: No evidence of aortic aneurysm. MUSCULOSKELETAL: No acute osseous abnormalities. Mild disc degeneration changes are present throughou t the thoracolumbar spine. LYMPH NODES: No gross evidence for lymphadenopathy. SOFT TISSUE/ABDOMINAL WALL: Small fat-containing umbilical hernia. IMPRESSION: 1. Postsurgical changes with left nephrectomy without evidence for recurrence or metastatic disease. 2. Nonobstructing right renal calculus.
== END | disposition home or self-care (01) ==
LOC: RADCTMAIN 13:32
PROVIDERS: ATTEND Urology
DX: C64.2 Malignant neoplasm of left kidney, except renal pelvis (principal); N20.0 Calculus of kidney
CPT/HCPCS: 74150

== ENCOUNTER → 2023-04-21 | Outpatient (CLI) | payer MEDICARE, BC ==
--- NOTE | 2023-04-21 20:11 | CT ---
EXAMINATION TYPE: CT abdomen pelvis wo con CT DLP: 945.60 mGycm, Automated exposure control for dose reduction was used. DATE OF EXAM: 04/21/2023 3:53 PM COMPARISON: CT abdomen 05/13/2022, CT abdomen pelvis 05/05/2021 CLINICAL INDICATION:Male, 83 years old with history of C64.2; poss kidney stone, hx of kidney ca and left renal nephrectomy TECHNIQUE: Standard CT of the abdomen and pelvis without IV or oral contrast. Lack of IV or oral co ntrast limits evaluation of solid and hollow organ viscera. Coronal and sagittal reformats were perfo rmed. FINDINGS: LOWER CHEST: Unremarkable ABDOMEN LIVER: Unremarkable noncontrast appearance. GALLBLADDER AND BILE DUCTS: The gallbladder is surgically absent. PANCREAS: Unremarkable noncontrast appearance SPLEEN: Unremarkable noncontrast appearance ADRENAL GLANDS: Unremarkable noncontrast appearance. KIDNEYS AND URETERS: No hydronephrosis involving the right kidney. Right renal calculus measuring up to 3 mm. Surgical changes from left nephrectomy. No suspicious soft tissue within the nephrectomy be d to suggest local recurrence. PELVIS BLADDER: Unremarkable REPRODUCTIVE: Coarse calcifications of the prostate gland are identified. ABDOMEN & PELVIS STOMACH AND BOWEL: Diverticulum involving the second/third portion of the duodenum. Distal colonic di verticulosis without evidence for acute diverticulitis. The appendix is within normal limits. No evid ence of bowel obstruction. PERITONEUM: No evidence of pneumoperitoneum or free fluid. VASCULATURE: Mild atherosclerotic calcifications are present throughout the abdominal aorta and its b ranches. No evidence of aortic aneurysm. MUSCULOSKELETAL: No acute osseous abnormalities. Mild disc degeneration changes are present throughou t the thoracolumbar spine. This is most pronounced at L5-S1. LYMPH NODES: Marginal increase in size of bilateral common iliac chain lymph nodes with the largest o n the left measuring up to 1.4 cm and largest on the right measuring up to 1.3 cm (series 3, image 84 ). Previously measured 0.9 mm bilaterally on 2020 exam. SOFT TISSUE/ABDOMINAL WALL: Unremarkable IMPRESSION: 1. Postsurgical changes from left nephrectomy without evidence for local recurrence within the nephr ectomy bed. Slight interval increase in size of bilateral common iliac chain lymph nodes. Etiologies include reactive versus metastatic disease versus other. Attention on follow-up exam. 2. Nonobstructive right renal calculus. 3.Colonic diverticulosis without evidence for acute diverticulitis.
== END | disposition home or self-care (01) ==
LOC: RADCTMAIN 15:23
PROVIDERS: ATTEND Urology
DX: C64.2 Malignant neoplasm of left kidney, except renal pelvis (principal); N20.0 Calculus of kidney; K57.30 Diverticulosis of large intestine without perforation or abscess without bleeding; Z85.528 Personal history of other malignant neoplasm of kidney; Z90.5 Acquired absence of kidney
CPT/HCPCS: 74176

== ENCOUNTER 2023-05-08 13:56 | Observation (INO) | payer MEDICARE, BC ==
[2023-05-08 14:55] LABS: Basophils % (A) 0 %; Eosinophils # (A) 0.3 k/uL (0-0.7); Eosinophils % (A) 3 %; HCT 40.5 % (39.0-53.0); HGB 13.8 gm/dL (13.0-17.5); Lymphocytes # (A) 1.1 k/uL (1.0-4.8); Lymphocytes % (A) 12 %; MCH 29.2 pg (25.0-35.0); MCHC 34.1 g/dL (31.0-37.0); MCV 85.8 fL (80.0-100.0); Mean Platelet Volume 8.2; Monocytes # (A) 0.6 k/uL (0-1.0); Monocytes % (A) 7 %; Neutrophils # (A) 6.4 k/uL (1.3-7.7); Neutrophils % (A) 76 %; Platelet Count 145 k/uL (150-450); RBC 4.72 m/uL (4.30-5.90); RDW 13.1 % (11.5-15.5); WBC 8.4 k/uL (3.8-10.6)
[2023-05-08 15:07] LABS: ALT 24 U/L (4-49); AST 30 U/L (17-59); African American GFR (CKD) 48 (>60 ml/min/1.73 sqM); Albumin 3.9 g/dL (3.5-5.0); Alkaline Phosphatase 73 U/L (38-126); Anion Gap 7 mmol/L; Blood Urea Nitrogen 24 mg/dL (9-20); Calcium 9.2 mg/dL (8.4-10.2); Carbon Dioxide 26 mmol/L (22-30); Chloride 107 mmol/L (98-107); Creatine Kinase 92 U/L (55-170); Glucose 101 mg/dL (74-99); Non-African American GFR(CKD) 42 (>60 ml/min/1.73 sqM); Potassium 4.7 mmol/L (3.5-5.1); Sodium 140 mmol/L (137-145); Total Bilirubin 0.5 mg/dL (0.2-1.3); Total Protein 6.7 g/dL (6.3-8.2)
--- NOTE | 2023-05-08 15:29 | CT ---
EXAMINATION TYPE: CT brain norberto babb DATE OF EXAM: 05/08/2023 COMPARISON: 09/19/2021 HISTORY: Pain Unenhanced CT of the brain was performed. The ventricles, basal cisterns and sulci overlying the cerebral convexities demonstrate mild enlargem ent. There is no evidence for intracranial hemorrhage or sulcal effacement. There is decreased attenuatio n about the periventricular white matter and deep white matter of both cerebral hemispheres, compatib le with chronic small vessel ischemia. No mass effects are seen. If symptoms persist consider MRI. Osseous calvarium is intact. IMPRESSION: 1. Age related atrophic and chronic small vessel ischemic change without acute intracranial process seen at this time. CT Cervical Spine: Unenhanced CT of the cervical spine was performed with bone and soft tissue window settings submitted . Coronal and sagittal reconstruction is obtained. There is normal alignment and prevertebral soft tissues. No evidence for acute cervical fracture . Scattered degenerative disc disease and spondylosis. Biapical scarring. IMPRESSION: 1. No evidence for acute fracture or subluxation of the cervical spine.
--- NOTE | 2023-05-08 15:30 | XR ---
EXAMINATION TYPE: XR chest 2V DATE OF EXAM: 05/08/2023 COMPARISON: 03/19/2017 HISTORY: Shortness of breath TECHNIQUE: Frontal and lateral views of the chest are obtained. FINDINGS: Scattered senescent parenchymal changes noted. Hyperinflation compatible with COPD. No evidence for infiltrate. No evidence for atelectasis. Heart size is stable. Mediastinal structures are stable and grossly unremarkable. No evidence for hilar prominence. Degenerative changes dorsal spine. IMPRESSION: 1. No evidence for acute pulmonary disease.
[2023-05-08] MEDS ORDERED: ASPIRIN 325 MG TAB PO STA (15:56)
--- NOTE | 2023-05-08 15:56 | ED ---
General Adult HPI - General Chief complaint: Recheck/Abnormal Lab/Rx Stated complaint: Recheck Time Seen by Provider: 05/08/23 14:22 Source: patient, RN notes reviewed Mode of arrival: ambulatory Limitations: no limitations - History of Present Illness Initial comments: 83-year-old male presents emergency Department chief complaint of neck discomfort, jaw pain, facial drooping. Patient states started a few days ago and was seen at PCPs office today and sent over for further evaluation. Patient denies any trauma no fevers or chills patient denies any prior facial issues. Denies any weakness of his upper or lower extremity. Patient denies any other associated symptoms. - Related Data Home Medications Medication Instructions Recorded Confirmed Rosuvastatin Calcium [Crestor] 40 mg PO HS 03/19/17 05/05/21 lisinopriL [Zestril] 2.5 mg PO TID 03/19/17 05/05/21 Tamsulosin HCl [Flomax] 0.4 mg PO HS 05/05/21 05/05/21 metFORMIN HCL [Glucophage] 500 mg PO DAILY 05/05/21 05/05/21 Allergies Allergy/AdvReac Type Severity Reaction Status Date / Time latex Allergy Unknown IRRITATED Verified 05/08/23 14:02 SKIN Review of Systems ROS Statement: Those systems with pertinent positive or pertinent negative responses have been documented in the HPI. ROS Other: All systems not noted in ROS Statement are negative. 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 , ENLARGED PROSTATE., CONJUNCTIVA RED AND EYES WATER- PT STATES APPT TO SEE EYE History of Any Multi-Drug Resistant Organisms: None Reported Past Surgical History: Cholecystectomy Additional Past Surgical History / Comment(s): TOE SURGERY, COLONOSCOPY Past Anesthesia/Blood Transfusion Reactions: No Reported Reaction Past Psychological History: No Psychological Hx Reported Smoking Status: Never smoker Past Alcohol Use History: Rare Past Drug Use History: None Reported - Past Family History Mother Family Medical History: No Reported History General Exam Limitations: no limitations General appearance: alert, in no apparent distress Head exam: Present: atraumatic, normocephalic, normal inspection Eye exam: Present: normal appearance, PERRL, EOMI. Absent: scleral icterus, conjunctival injection, periorbital swelling ENT exam: Present: normal exam, normal oropharynx, mucous membranes moist Neck exam: Present: normal inspection, full ROM. Absent: tenderness, meni ngismus, lymphadenopathy Respiratory exam: Present: normal lung sounds bilaterally. Absent: respiratory distress, wheezes, rales, rhonchi, stridor Cardiovascular Exam: Present: regular rate, normal rhythm, normal heart sounds. Absent: systolic murmur, diastolic murmur, rubs, gallop, clicks GI/Abdominal exam: Present: soft, normal bowel sounds. Absent: distended, tenderness, guarding, rebound, rigid Extremities exam: Present: normal inspection, full ROM, normal capillary refill. Absent: tenderness, pedal edema, joint swelling, calf tenderness Back exam: Present: full ROM. Absent: tenderness, paraspinal tenderness, vertebral tenderness Neurological exam: Present: alert, oriented X3, CN II-XII intact, reflexes normal. Absent: motor sensory deficit Expanded Patient oriented to: Present: person, place, time Speech: Present: fluid speech Cranial nerves: EOM's Intact: Normal, Gag Reflex: Normal, Tongue Deviation: Normal, Facial Palsy with Forehead Movement: Abnormal Left Cerebellar function: Finger to Nose: Normal, Heel to [place]: Normal Sensory exam: Upper Extremity Light Touch: Normal, Upper Extremity Temperature: Normal, LE 2 Point Discrimination: Normal Motor strength exam: RUE: 5, LUE: 5, RLE: 5, LLE: 5 Eye Response: (4) open spontaneously Motor Response: (6) obeys commands Verbal Response: (5) oriented Course Vital Signs 05/08/23 05/08/23 05/08/23 14:02 14:08 14:16 Temperature 97.5 F L Pulse Rate 79 79 76 Respiratory 16 20 29 H Rate Blood Pressure 104/67 116/66 O2 Sat by Pulse 95 99 Oximetry 05/08/23 05/08/23 05/08/23 14:20 14:30 14:31 Temperature Pulse Rate 81 77 77 Respiratory 20 11 L 20 Rate Blood Pressure 116/66 117/68 O2 Sat by Pulse 95 96 95 Oximetry 05/08/23 05/08/23 05/08/23 14:40 14:50 15:00 Temperature Pulse Rate 78 75 75 Respiratory 14 16 16 Rate Blood Pressure 117/68 117/68 117/68 O2 Sat by Pulse 96 97 97 Oximetry Medical Decision Making - Medical Decision Making Was pt. sent in by a medical professional or institution (ADILSON Mitchell, TOURIST AGENT, urgent care, hospital, or halfway...) When possible be specific @ -PCP Did you speak to anyone other than the patient for history (EMS, parent, family, police, friend...)? What history was obtained from this source @ -No Did you review nursing and triage notes (agree or disagree)? Why? @ -I reviewed and agree with nursing and triage notes Were old charts reviewed (outside hosp., previous admission, EMS record, old EKG, old radiological studies, urgent care reports/EKG's, halfway records)? Report findings @ -No old charts were reviewed Differential Diagnosis (chest pain, altered mental status, abdominal pain women, abdominal pain men, vaginal bleeding, weakness, fever, dyspnea, syncope, headache, dizziness, GI bleed, back pain, seizure, CVA, palpatations, mental health, musculoskeletal)? @ -[CVA, Govea's palsy, EKG interpreted by me (3pts min.). @ -As above X-rays interpreted by me (1pt min.). @ -Chest x-ray shows no acute cardio pulmonary in process CT interpreted by me (1pt min.). @ -CT brain, C-spine shows no acute process U/S interpreted by me (1pt. min.). @ -None done What testing was considered but not performed or refused? (CT, X-rays, U/S, labs)? Why? @ -None What meds were considered but not given or refused? Why? @ -None Did you discuss the management of the patient with other professionals (professionals i.e. ADILSON Mitchell, TOURIST AGENT, lab, RT, psych nurse, psychosocial rehabilitation counselor, operations intern, teacher, interface control officer, binder caser)? Give summary @ -Dr. Olmedo for admission with neurology evaluation Was smoking cessation discussed for >3mins.? @ -No Was critical care preformed (if so, how long)? @ -No Were there social determinants of health that impacted care today? How? ( Homelessness, low income, unemployed, alcoholism, drug addiction, transportation, low edu. Level, literacy, decrease access to med. care, senior care, rehab)? @ -No Was there de-escalation of care discussed even if they declined (Discuss DNR or withdrawal of care, Hospice)? DNR status @ -No What co-morbidities impacted this encounter? (DM, HTN, Smoking, COPD, CAD, Cancer, CVA, ARF, Chemo, Hep., AIDS, mental health diagnosis, sleep apnea, morbid obesity)? @ -Diabetes, hypertension, hyperlipidemia Was patient admitted / discharged? Hospital course, mention meds given and route, prescriptions, significant lab abnormalities, going to OR and other pertinent info. @ -Admitted patient has left sided facial paralysis with sparing of the forehead does not appear to be Govea's palsy patient will be admitted for CVA workup at this time patient symptoms have been present for more than 24 hours. Undiagnosed new problem with uncertain prognosis? @ -No Drug Therapy requiring intensive monitoring for toxicity (Heparin, Nitro, Insulin, Cardizem)? @ -No Were any procedures done? @ -No Diagnosis/symptom? @ -CVA Acute, or Chronic, or Acute on Chronic? @ -Acute Uncomplicated (without systemic symptoms) or Complicated (systemic symptoms)? @ -complicated Side effects of treatment? @ -No Exacerbation, Progression, or Severe Exacerbation? @ -No Poses a threat to life or bodily function? How? (Chest pain, [place], [place], pneumonia, PE, COPD, DKA, ARF, appy, cholecystitis, CVA, Diverticulitis, Homicidal, Suicidal, threat to staff... and all critical care pts) @ -No - Lab Data Result diagrams: 05/08/23 14:28 05/08/23 14:28 Lab Results 05/08/23 05/08/23 05/08/23 Range/Units 14:28 14:28 14:28 WBC 8.4 (3.8-10.6) k/uL RBC 4.72 (4.30-5.90) m/uL Hgb 13.8 (13.0-17.5) gm/dL Hct 40.5 (39.0-53.0) % MCV 85.8 (80.0-100.0) fL MCH 29.2 (25.0-35.0) pg MCHC 34.1 (31.0-37.0) g/dL RDW 13.1 (11.5-15.5) % Plt Count 145 L (150-450) k/uL MPV 8.2 Neutrophils % 76 % Lymphocytes % 12 % Monocytes % 7 % Eosinophils % 3 % Basophils % 0 % Neutrophils # 6.4 (1.3-7.7) k/uL Lymphocytes # 1.1 (1.0-4.8) k/uL Monocytes # 0.6 (0-1.0) k/uL Eosinophils # 0.3 (0-0.7) k/uL Basophils # 0.0 (0-0.2) k/uL Sodium 140 (137-145) mmol/L Potassium 4.7 (3.5-5.1) mmol/L Chloride 107 (98-107) mmol/L Carbon Dioxide 26 (22-30) mmol/L Anion Gap 7 mmol/L BUN 24 H (9-20) mg/dL Creatinine 1.52 H (0.66-1.25) mg/dL Est GFR (CKD-EPI)AfAm 48 (>60 ml/min/1.73 sqM) Est GFR (CKD-EPI)NonAf 42 (>60 ml/min/1.73 sqM) Glucose 101 H (74-99) mg/dL Calcium 9.2 (8.4-10.2) mg/dL Total Bilirubin 0.5 (0.2-1.3) mg/dL AST 30 (17-59) U/L ALT 24 (4-49) U/L Alkaline Phosphatase 73 (38-126) U/L Creatine Kinase 92 (55-170) U/L Troponin I <0.012 (0.000-0.034) ng/mL Total Protein 6.7 (6.3-8.2) g/dL Albumin 3.9 (3.5-5.0) g/dL Disposition Clinical Impression: CVA (cerebral vascular accident), Neck pain Disposition: ADMITTED IP TO THIS HOSP Condition: Fair Referrals: Clarence Qureshi DO [Primary Care Provider] - 1-2 days Time of Disposition: 15:52
[2023-05-08 16:13] LABS: Partial Thromboplastin Time 22.5 sec (22.0-30.0); Prothrombin Time 10.5 sec (9.0-12.0)
[2023-05-08 17:08] LABS: Glucose,Whole Blood 92 mg/dL (70-110)
[2023-05-08] MEDS: metFORMIN 500 MG TAB PO SCH (18:22)
[2023-05-08 19:09] LABS: C Reactive Protein 0.6 mg/dL (<1.0)
[2023-05-08 20:23] LABS: Glucose,Whole Blood 126 mg/dL (70-110)
[2023-05-08] MEDS ORDERED: DEXTROSE 50% SYRINGE 50 ML IVP PRN ×2 (20:52)
[2023-05-08] MEDS: ENOXAPARIN 40 MG/0.4 ML SYRINGE SQ SCH (21:43)
--- NOTE | 2023-05-08 22:00 | US ---
EXAMINATION TYPE: US carotid duplex BILAT DATE OF EXAM: 05/08/2023 COMPARISON: NONE CLINICAL INDICATION: Male, 83 years old with history of Stenosis; Stroke TECHNIQUE: Carotid duplex ultrasound examination. Indirect Doppler criteria was utilized. FINDINGS: EXAM MEASUREMENTS: RIGHT: Peak Systolic Velocity (PSV) cm/sec ----- Right CCA: 80.7 ----- Right ICA: 79.4 ----- Right ECA: 74.2 ICA/CCA ratio: 1.0 RIGHT: End Diastole cm/sec ----- Right CCA: 24.7 ----- Right ICA: 27.3 ----- Right ECA: 7.7 LEFT: Peak Systolic Velocity (PSV) cm/sec ----- Left CCA: 67.2 ----- Left ICA: 86.6 ----- Left ECA: 64.6 ICA/CCA ratio: 1.3 LEFT: End Diastole cm/sec ----- Left CCA: 18.0 ----- Left ICA: 28.3 ----- Left ECA: 7.6 VERTEBRALS (direction of flow): Right Vertebral: Antegrade Left Vertebral: Antegrade Rhythm: Normal IMPRESSION: Negative for hemodynamically-significant stenosis. Criteria for Assigning % of Stenosis / Diameter reduction (Estimation based on the indirect measurements of the internal carotid artery velocities (ICA PSV). 1. Normal (no stenosis)=ICA PSV < 125 cm/s: ratio < 2.0: ICA EDV<40 cm/s. 2. Less than 50% stenosis=ICA PSV < 125 cm/s: ratio < 2.0: ICA EDV<40 cm/s. 3. 50 to 69% stenosis=ICA PSV of 125 to 230 cm/s: ration 2.0 ? 4.0: ICA EDV 40-100 cm/s. 4. Greater than 70% stenosis to near occlusion= ICA PSV > 230 cm/s: ratio > 4.0: ICA EDV > 100 cm/s. 5. Near occlusion= ICA PSV velocities may be low or undetectable: variable ratio and ICA EDV. 6. Total occlusion=unable to detect flow.
[2023-05-09 00:35] VITALS: TEMP 97.9
[2023-05-09 03:31] LABS: Rheumatoid Factor, Qnt <15 IU/mL (0-15)
[2023-05-09 04:13] VITALS: BP 110/69; PULSE 77; RESP 16
[2023-05-09 06:10] LABS: Glucose,Whole Blood 98 mg/dL (70-110)
[2023-05-09] MEDS: INSULIN ASPART (NovoLOG) 100 UNIT/ML VIAL SQ SCH ×2 (06:15→12:07)
[2023-05-09] MEDS: metFORMIN 500 MG TAB PO SCH (06:52)
[2023-05-09] MEDS ORDERED: LORATADINE 10 MG TAB PO SCH (09:00)
[2023-05-09] MEDS ORDERED: CHOLECALCIFEROL 25 MCG (1000 IU) TABLET PO SCH (09:00)
[2023-05-09] MEDS ORDERED: ATORVASTATIN 80 MG TAB PO SCH (09:00)
[2023-05-09] MEDS ORDERED: ASCORBIC ACID 500 MG TAB PO SCH (09:00)
[2023-05-09] MEDS ORDERED: ASPIRIN 325 MG TAB PO SCH (09:00)
[2023-05-09] MEDS ORDERED: ZINC SULFATE 220 MG CAP PO SCH (09:00)
[2023-05-09] MEDS ORDERED: TAMSULOSIN 0.4 MG CAP.ER.24H PO SCH (09:00)
[2023-05-09] MEDS: ENOXAPARIN 40 MG/0.4 ML SYRINGE SQ SCH (09:48)
--- NOTE | 2023-05-09 10:28 | P.CNNES ---
History of Present Illness Consult date: 05/08/23 Requesting physician: Justin Flores Reason for Consult: CVA History of Present Illness: Patient is a 83-year-old right-handed male with history of diabetes, came to the hospital today at 1:56 PM for jaw hurting, pointing to the at the angle of jaw bilaterally. He states that he cannot turn his head very much on the side. Both of these symptoms started 3 days ago, but has become worse in the last 2 days. He woke up this morning, and could hardly move his head. It was hurting each side of his neck and back. He denied any slurred speech, any facial droop, any visual problems, no numbness or tingling or focal weakness on any strokelike symptoms. When patient arrived to the ER, there was some facial droop noticed, which prompted this neurology consultation. Vital signs on arrival blood pressure 104/67, pulse is 79 temperature 97.5. Blood test shows normal CBC, PT/PTT, normal electrolytes, BU and 24, creatinine 1.52. Hepatic panel is normal, CK normal, troponin negative. Patient has history of diabetes, denies hypertension. He states he has a single kidney. Patient has smoked greater than 1 pack per day for 10-12 years, quit 25 years ago. Denies any alcohol use. 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 Patient says that he used to take aspirin long time ago, but quit taking 810 years ago. Review of Systems Constitutional: Denies chills, Denies fever Eyes: denies blurred vision, denies diplopia, denies pain Ears: bilateral: decreased hearing, deny: tinnitus (Once in a while) Ears, nose, mouth and throat: Denies headache, Denies sore throat Cardiovascular: Denies chest pain, Denies shortness of breath Respiratory: Reports excessive sputum, Denies cough Gastrointestinal: Denies abdominal pain, Denies diarrhea, Denies nausea, Denies vomiting Musculoskeletal: Reports low back pain (-depend what is working), Denies myalgias, Denies neck pain (Once in a while) Integumentary: Denies pruritus, Denies rash Neurological: Reports as per HPI Psychiatric: Denies anxiety, Denies depression Endocrine: Denies fatigue (Only related to exertion), Denies weight change Hematologic/Lymphatic: Denies easy bleeding, Denies easy bruising Past Medical History Past Medical History: Cancer, Diabetes Mellitus, Hyperlipidemia, Hypertension, Prostate Disorder, Skin Disorder Additional Past Medical History / Comment(s): 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 , ENLARGED PROSTATE., CONJUNCTIVA RED AND EYES WATER- PT STATES APPT TO SEE EYE DR. History of Any Multi-Drug Resistant Organisms: None Reported Past Surgical History: Cholecystectomy Additional Past Surgical History / Comment(s): TOE SURGERY, COLONOSCOPY Past Anesthesia/Blood Transfusion Reactions: No Reported Reaction Past Psychological History: No Psychological Hx Reported Smoking Status: Never smoker Past Alcohol Use History: Rare Past Drug Use History: None Reported - Past Family History Mother Family Medical History: No Reported History Medications and Allergies Home Medications Medication Instructions Recorded Confirmed Type Rosuvastatin Calcium [Crestor] 40 mg PO DAILY 03/19/17 05/08/23 History Tamsulosin HCl [Flomax] 0.4 mg PO DAILY 05/05/21 05/08/23 History metFORMIN HCL [Glucophage] 500 mg PO BID 05/05/21 05/08/23 History Ascorbic Acid [Vitamin C] 500 mg PO DAILY 05/08/23 05/08/23 History Cholecalciferol [Vitamin D3 (25 25 mcg PO DAILY 05/08/23 05/08/23 History Mcg = 1000 Iu)] Loratadine 10 mg PO DAILY 05/08/23 05/08/23 History Zinc Gluconate [Zinc] 50 mg PO DAILY 05/08/23 05/08/23 History Allergies Allergy/AdvReac Type Severity Reaction Status Date / Time latex Allergy Unknown IRRITATED Verified 05/08/23 15:58 SKIN Physical Examination - Vital Signs Vital Signs: Vital Signs Temp Pulse Resp BP Pulse Ox 05/08/23 16:42 72 16 135/78 98 05/08/23 15:00 75 16 117/68 97 05/08/23 14:50 75 16 117/68 97 05/08/23 14:40 78 14 117/68 96 05/08/23 14:31 77 20 117/68 95 05/08/23 14:30 77 11 L 116/66 96 05/08/23 14:20 81 20 95 05/08/23 14:16 76 29 H 05/08/23 14:08 79 20 116/66 99 05/08/23 14:02 97.5 F L 79 16 104/67 95 Intake and Output 05/08/23 05/08/23 05/08/23 06:59 14:59 22:59 Output Total 0 Balance 0 Output: Gastric Drainage 0 Urine 0 Stool 0 Urine/Stool Mix 0 Emesis 0 Oral Regurgitation 0 Other 0 Other: # Voids 0 # Bowel Movements 0 Weight 96.162 kg Patient is an elderly male, in no acute distress. Patient is alert awake oriented to time place and person. Speech and language functions are normal. Patient can name and repeat very well. No aphasia or dysarthria. Attention, concentration and fund of knowledge is adequate. Detail testing deferred. On cranial nerve examination, pupils are equal, round and reacting to light, visual guerrero are full on confrontation, with no neglect on double simultaneous stimulation. Extraocular muscles are intact with no nystagmus. Face is symmetric, tongue protrudes to the midline. Palatal elevation and sensation normal, hearing and shoulder shrug normal, facial sensation normal. On muscle strength testing, there is no pronator drift and the strength is normal in arms and legs distally and proximally. Deep tendon reflexes are symmetric biceps 1, brachioradialis 1, knees 2, ankles 1+ and plantars downgoing bilaterally. Sensory to touch is equal with no neglect on double simultaneous stimulation. Cerebellar function showed no ataxia for [id number] testing. No dysdiadochokinesia. No ataxia for [id number] testing on either side. Tone and bulk of muscles normal. Gait deferred.. On general examination, there is no carotid bruit or murmur, S1-S2 audible. Chest is clear on consultation. Abdomen is soft nontender. No organomegaly, bowel sounds present. Peripheral pulses are present. No edema. Results - Laboratory Findings CBC and BMP: 05/08/23 14:28 05/08/23 14:28 Abnormal Lab Findings: Abnormal Labs 05/08/23 05/08/23 14:28 14:28 Plt Count 145 L BUN 24 H Creatinine 1.52 H Glucose 101 H Assessment and Plan Assessment: * New onset bilateral jaw pain, pointing to the angle of the jaw bilaterally, and some neck stiffness. Exact cause is uncertain, perhaps muscle strain/ spasm. Neurological examination is normal, and a stroke scale 0. * Transient facial droop noted in the ER, which now seems to have resolved. No evidence of CVA. * Diabetes * Hyperlipidemia * Hypertension Plan: * Carotid Doppler revealed no hemodynamically significant stenosis. Antegrade flow in both vertebral arteries. * 2-D echo to rule out embolic source * Hemoglobin A1c 5.9 * Fasting lipid panel. Patient was on Crestor 40 mg at home. Continue Lipitor 80 mg while in the hospital. * Check ESR, CRP, rheumatoid factor. * Telemetry monitoring. * Start aspirin regimen. Patient started on aspirin 325 mg from the ER. * Aspirin might help with the neck spasm. May consider muscle relaxer and a course of physical therapy for neck spasm/decreased range of motion. * Neurology will follow. Thank you for the consult.
[2023-05-09] MEDS ORDERED: NAPROXEN 250 MG TAB PO STA (11:02)
[2023-05-09] MEDS ORDERED: CYCLOBENZAPRINE 5 MG TAB PO SCH (11:15)
[2023-05-09 11:26] LABS: Chol/HDL Ratio 4.55 Ratio; LDL Cholesterol,Calculated 63.9 mg/dL (0.0-131.0)
[2023-05-09 11:40] LABS: Glucose,Whole Blood 119 mg/dL (70-110)
[2023-05-09] MEDS ORDERED: predniSONE 20 MG TAB PO STA (12:07)
--- NOTE | 2023-05-09 12:23 | XR ---
EXAMINATION TYPE: XR cervical spine comp DATE OF EXAM: 05/09/2023 COMPARISON: NONE HISTORY: Pain TECHNIQUE: Four views are submitted. FINDINGS: The odontoid is intact. There are no compression deformities. The prevertebral soft tissue structur es are within normal limits. There is a severe degenerative disc disease C4-5, C5-6 and C6-C7 with p osterior spondylosis and anterior osteophyte formation. There is multilevel facet arthropathy. There is foraminal encroachment at levels C4-C7 bilaterally with the most marked changes noted on the right at C4-5, C5-6 and C6/C7. Recommend follow-up MRI. IMPRESSION: 1. 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 There is foraminal encroachment at levels C4-C7 bilaterally with the most marked changes noted on the right at C4-5, C5- 6 and C6/C7. Recommend follow-up MRI.
[2023-05-09] MEDS ORDERED: NAPROXEN 250 MG TAB PO SCH (16:00)
--- NOTE | 2023-05-09 17:58 | CA ---
Transthoracic Echo Report Name: Corey Gurrola Age: 83 Gender: M : 1940 Exam Date: 05/09/2023 09:59 Exam Location: [facility] Ht (in): 67 Wt (lb): 212 Ordering Physician: Justin Flores PAC Attending/Referring Phys: [id number] Supervisor [employer] Emilia Joe [facility] Procedure CPT: Indications: Thrombus Cardiac Hx: Technical Quality: Fair Contrast 1: Total Dose (mL): Contrast 2: Total Dose (mL): MEASUREMENTS (Male / Female) Normal Values 2D ECHO LV Diastolic Diameter PLAX 4.3 cm 4.2 - 5.9 / 3.9 - 5.3 cm LV Systolic Diameter PLAX 3.8 cm IVS Diastolic Thickness 0.8 cm 0.6 - 1.0 / 0.6 - 0.9 cm LVPW Diastolic Thickness 0.7 cm 0.6 - 1.0 / 0.6 - 0.9 cm LV Relative Wall Thickness 0.4 LVOT Diameter 2.0 cm Aortic Root Diameter 3.2 cm LV Diastolic Volume MOD BP 91.6 cm??? 67 - 155 / 56 - 104 cm??? LV Systolic Volume MOD BP 46.1 cm??? 22 - 58 / 19 - 49 cm??? LV Ejection Fraction MOD BP 49.6 % >= 55 % LV Cardiac Index MOD BP 1342.7 cm???/min???m??? LV Diastolic Volume MOD 4C 86.4 cm??? LV Systolic Volume MOD 4C 41.8 cm??? LV Ejection Fraction MOD 4C 51.7 % LV Cardiac Index MOD 4C 1319.3 cm???/min???m??? LV Diastolic Length 4C 8.2 cm LV Systolic Length 4C 7.2 cm LV Diastolic Volume MOD 2C 94.3 cm??? LV Systolic Volume MOD 2C 45.3 cm??? LV Ejection Fraction MOD 2C 52.0 % LV Cardiac Index MOD 2C 1449.7 cm???/min???m??? LV Diastolic Length 2C 7.9 cm LV Systolic Length 2C 6.3 cm M-MODE Aortic Root Diameter MM 3.5 cm LA Systolic Diameter MM 2.9 cm LA Ao Ratio MM 0.8 AV Cusp Separation MM 1.9 cm DOPPLER AV Peak Velocity 149.1 cm/s AV Peak Gradient 8.9 mmHg AV Mean Velocity 116.6 cm/s AV Mean Gradient 5.8 mmHg AV Velocity Time Integral 28.6 cm LVOT Peak Velocity 76.6 cm/s LVOT Peak Gradient 2.3 mmHg LVOT Velocity Time Integral 17.7 cm LVOT Stroke Volume 52.9 cm??? LVOT Stroke Volume Index 25.5 ml/m??? LVOT Cardiac Index 1561.5 cm???/min???m??? AV Area Cont Eq vti 1.8 cm??? AV Area Cont Eq pk 1.5 cm??? Mitral E Point Velocity 73.1 cm/s Mitral A Point Velocity 80.1 cm/s Mitral E to A Ratio 0.9 MV Deceleration Time 256.0 ms LV E' Lateral Velocity 6.3 cm/s Mitral E to LV E' Lateral Ratio 11.6 LV E' Septal Velocity 5.3 cm/s Mitral E to LV E' Septal Ratio 13.9 TR Peak Velocity 222.4 cm/s TR Peak Gradient 19.8 mmHg Right Atrial Pressure 3.0 mmHg Pulmonary Artery Systolic Pressu 22.8 mmHg Right Ventricular Systolic Press 24.8 mmHg FINDINGS Left Ventricle Normal Left ventricular size, wall thickness, with no obvious regional wall motion abnormalities. Left ventricular ejection fraction is estimated at 45- 50%. Mildly decreased left ventricular ejection fraction. Right Ventricle Moderate-severe right ventricular dilatation. Normal right ventricular global systolic function. Right Atrium Mild right atrial dilatation. Left Atrium Mild left atrial dilatation. Mitral Valve Mitral valve thickened. Mild mitral annular calcification. No mitral regurgitation. Aortic Valve Aortic valve sclerosis. No aortic regurgitation. Tricuspid Valve Structurally normal tricuspid valve. Mild tricuspid regurgitation. Pulmonic Valve Pulmonic valve not well visualized. Pericardium No pericardial effusion. Aorta Normal size aortic root and proximal ascending aorta. CONCLUSIONS Normal LV function Moderate to severe right ventricular dilatation Mild mitral regurgitation Previewed by: Jhony Dunn MD Dr. Suresh Tumma MD (Electronically Signed) Final Date: 09 May 2023 17:57
--- NOTE | 2023-05-09 20:02 | P.HPIM ---
History of Present Illness H&P Date: 05/09/23 Chief Complaint: Difficulty turning head This is a pleasant 83-year-old patient follows Dr. Qureshi. Last 3 days patient noticed that his finding difficulty turning his head to both the sides. To the point it was interfering with his driving. He had to move his entire body. Patient also complaining of some pain between the jaw and ear. Side of the neck. No change in speech, vision, headache no trouble walking. No weakness in the arms. No fever no chills. No prior history of any neck pain as such. There was questionable at some facial asymmetry in the ER. None noticed on the floor. Review of systems: GEN.: None EYES: None HEENT: None NECK: None RESPIRATORY: None CARDIOVASCULAR: None GASTROINTESTINAL: None GENITOURINARY: None MUSCULOSKELETAL: Joint pain LYMPHATICS: None HEMATOLOGICAL: None PSYCHIATRY: None NEUROLOGICAL: None Past medical history to include: Diabetes, hypertension, hyperlipidemia, BPH,pityriasis rubra pilaris, kidney cancer Diagnosis, Social history: Smoked on and off. In 1985. Alcohol rarely. Physical examination: VITAL SIGNS: 97.9, 77, 16, 110/69, 98% room air GENERAL: BMI 33.3, laying in bed awake not in distress. EYES: Pupils equal. Conjunctiva normal. HEENT: External appearance of nose and ears normal, oral cavity grossly normal. NECK: JVD not raised; masses not palpable. HEART: First and second heart sounds are normal; no edema. LUNGS: Respiratory rate normal; clear to auscultation. ABDOMEN: Soft, nontender, liver spleen not palpable, no masses palpable. PSYCH: Alert and oriented x3; mood and affect normal. MUSCULOSKELETAL:No Clubbing/cyanosis;muscles-grossly intact. Limitation of neck movement [id number]. OA NEUROLOGICAL: Cranial nerves grossly intact; no facial asymmetry, power and sensation grossly intact. LYMPHATICS: No lymph nodes palpable in the axilla and neck INVESTIGATIONS, reviewed in the clinical context: White count 8.4 hemoglobin 13.8 platelets 145 sodium 140 potassium 4.7 BUN 24 creatinine 1.5 to Hemoglobin A1c 5.9 CRP 0.6 LDLs 63.9 Corey factor less than [address]: Chronic changes. No fracture. Carotid Doppler: No significant stenosis Assessment and plan: -Possibly musculoskeletal pain in the neck. Patient is limited motion of neck sideways. No neurological symptoms. Consult neurology. Doubt neurological cause Flexeril. -Hyperlipidemia Crestor 40 mg -BPH Flomax 0.4 mg a day -Diabetes mellitus type 2 Glucophage. Follow Accu-Cheks Resume all medications. Flexeril. Cervical spine x-ray. We'll discuss with neurology. 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 , ENLARGED PROSTATE., CONJUNCTIVA RED AND EYES WATER- PT STATES APPT TO SEE EYE DRMagali History of Any Multi-Drug Resistant Organisms: None Reported Past Surgical History: Cholecystectomy Additional Past Surgical History / Comment(s): TOE SURGERY, COLONOSCOPY Past Anesthesia/Blood Transfusion Reactions: No Reported Reaction Past Psychological History: No Psychological Hx Reported Smoking Status: Former smoker Past Alcohol Use History: Rare Additional Past Alcohol Use History / Comment(s): QUIT SMOKING 1985. SMOKED ON AND OFF SINCE A TEENAGER (APPROX 29 YRS) Past Drug Use History: None Reported - Past Family History Mother Family Medical History: No Reported History Medications and Allergies Home Medications Medication Instructions Recorded Confirmed Type Rosuvastatin Calcium [Crestor] 40 mg PO DAILY 03/19/17 05/08/23 History Tamsulosin HCl [Flomax] 0.4 mg PO DAILY 05/05/21 05/08/23 History metFORMIN HCL [Glucophage] 500 mg PO BID 05/05/21 05/08/23 History Ascorbic Acid [Vitamin C] 500 mg PO DAILY 05/08/23 05/08/23 History Cholecalciferol [Vitamin D3 (25 25 mcg PO DAILY 05/08/23 05/08/23 History Mcg = 1000 Iu)] Loratadine 10 mg PO DAILY 05/08/23 05/08/23 History Zinc Gluconate [Zinc] 50 mg PO DAILY 05/08/23 05/08/23 History Aspirin 81 mg PO DAILY tab 05/09/23 Rx Cyclobenzaprine [Flexeril] 5 mg PO TID #30 tab 05/09/23 Rx predniSONE 0 mg PO DIRECTED #15 tab 05/09/23 Rx Allergies Allergy/AdvReac Type Severity Reaction Status Date / Time latex Allergy Unknown IRRITATED Verified 05/08/23 15:58 SKIN Physical Exam Vitals: Vital Signs Temp Pulse Pulse Resp BP BP Pulse Ox 05/09/23 04:00 97.9 F 77 16 110/69 98 05/09/23 00:00 97.9 F 72 17 120/71 98 05/08/23 19:59 98.1 F 88 17 114/68 98 05/08/23 16:42 72 16 135/78 98 05/08/23 15:00 75 16 117/68 97 05/08/23 14:50 75 16 117/68 97 05/08/23 14:40 78 14 117/68 96 05/08/23 14:31 77 20 117/68 95 05/08/23 14:30 77 11 L 116/66 96 05/08/23 14:20 81 20 95 05/08/23 14:16 76 29 H 05/08/23 14:08 79 20 116/66 99 05/08/23 14:02 97.5 F L 79 16 104/67 95 Intake and Output 05/08/23 05/09/23 05/09/23 22:59 06:59 14:59 Intake Total 540 358 Output Total 0 Balance 540 358 Intake: Oral 540 358 Output: Gastric Drainage 0 Urine 0 Stool 0 Urine/Stool Mix 0 Emesis 0 Oral Regurgitation 0 Other 0 Other: Voiding Method Toilet Toilet # Voids 0 # Bowel Movements 0 Weight 96.162 kg Results CBC & Chem 7: 05/08/23 14:28 05/08/23 14:28 Labs: Abnormal Lab Results - Last 24 Hours (Table) 05/08/23 05/08/23 05/08/23 Range/Units 14:28 14:28 20:22 Plt Count 145 L (150-450) k/uL BUN 24 H (9-20) mg/dL Creatinine 1.52 H (0.66-1.25) mg/dL Glucose 101 H (74-99) mg/dL POC Glucose (mg/dL) 126 H (70-110) mg/dL Thrombosis Risk Factor Assmnt - Choose All That Apply Any of the Below Risk Factors Present?: No Other Risk Factors: Yes Each Risk Factor Represents 3 Points: Age 75 years or older Other congenital or acquired thrombophilia - If yes, enter type in comment: No Thrombosis Risk Factor Assessment Total Risk Factor Score: 3 Thrombosis Risk Factor Assessment Level: Moderate Risk
--- NOTE | 2023-05-09 20:04 | P.DS ---
Providers Date of admission: 05/08/23 16:13 Expected date of discharge: 05/09/23 Attending physician: Brant Olmedo Consults: 05/08/23 15:58 Consult Physician Urgent Consulting Provider: Jaylyn Villanueva Consult Reason/Comments: CVA Do you want consulting provider notified?: Yes Primary care physician: [facility] Course: Chief Complaint: Difficulty turning head This is a pleasant 83-year-old patient follows Dr. Qureshi. Last 3 days patient noticed that his finding difficulty turning his head to both the sides. To the point it was interfering with his driving. He had to move his entire body. Patient also complaining of some pain between the jaw and ear. Side of the neck. No change in speech, vision, headache no trouble walking. No weakness in the arms. No fever no chills. No prior history of any neck pain as such. There was questionable at some facial asymmetry in the ER. None noticed on the floor. I discussed with Dr. Saunders neurology. Reports felt this was musculoskeletal. Flexeril was added. No neurological symptoms. Discussed with patient. Past medical history to include: Diabetes, hypertension, hyperlipidemia, BPH,pityriasis rubra pilaris, kidney cancer Diagnosis, Social history: Smoked on and off. In 1985. Alcohol rarely. Physical examination: VITAL SIGNS: 97.9, 77, 16, 110/69, 98% room air GENERAL: BMI 33.3, laying in bed awake not in distress. EYES: Pupils equal. Conjunctiva normal. HEENT: External appearance of nose and ears normal, oral cavity grossly normal. NECK: JVD not raised; masses not palpable. HEART: First and second heart sounds are normal; no edema. LUNGS: Respiratory rate normal; clear to auscultation. ABDOMEN: Soft, nontender, liver spleen not palpable, no masses palpable. PSYCH: Alert and oriented x3; mood and affect normal. MUSCULOSKELETAL:No Clubbing/cyanosis;muscles-grossly intact. Limitation of neck movement [id number]. OA NEUROLOGICAL: Cranial nerves grossly intact; no facial asymmetry, power and sensation grossly intact. LYMPHATICS: No lymph nodes palpable in the axilla and neck INVESTIGATIONS, reviewed in the clinical context: 2-D echocardiogram: EF 45-50%. Moderate to severe right ventricular dilatation. White count 8.4 hemoglobin 13.8 platelets 145 sodium 140 potassium 4.7 BUN 24 creatinine 1.5 to Hemoglobin A1c 5.9 CRP 0.6 LDLs 63.9 Corey factor less than [address]: Chronic changes. No fracture. Carotid Doppler: No significant stenosis Assessment and plan: -Possibly musculoskeletal pain in the neck. Patient is limited motion of neck sideways. No neurological symptoms. Consult neurology. Doubt neurological cause Flexeril. -Hyperlipidemia Crestor 40 mg -BPH Flomax 0.4 mg a day -Diabetes mellitus type 2 Glucophage. Follow Accu-Cheks Disposition: Home Patient Condition at Discharge: Fair Plan - Discharge Summary Discharge Rx Participant: No New Discharge Prescriptions: New Aspirin 81 mg PO DAILY tab Cyclobenzaprine [Flexeril] 5 mg PO TID #30 tab predniSONE 0 mg PO DIRECTED #15 tab Continue Rosuvastatin Calcium [Crestor] 40 mg PO DAILY metFORMIN HCL [Glucophage] 500 mg PO BID Zinc Gluconate [Zinc] 50 mg PO DAILY Cholecalciferol [Vitamin D3 (25 Mcg = 1000 Iu)] 25 mcg PO DAILY Ascorbic Acid [Vitamin C] 500 mg PO DAILY Loratadine 10 mg PO DAILY Tamsulosin HCl [Flomax] 0.4 mg PO DAILY Discharge Medication List Rosuvastatin Calcium [Crestor] 40 mg PO DAILY 03/19/17 [History] Tamsulosin HCl [Flomax] 0.4 mg PO DAILY 05/05/21 [History] metFORMIN HCL [Glucophage] 500 mg PO BID 05/05/21 [History] Ascorbic Acid [Vitamin C] 500 mg PO DAILY 05/08/23 [History] Cholecalciferol [Vitamin D3 (25 Mcg = 1000 Iu)] 25 mcg PO DAILY 05/08/23 [History] Loratadine 10 mg PO DAILY 05/08/23 [History] Zinc Gluconate [Zinc] 50 mg PO DAILY 05/08/23 [History] Aspirin 81 mg PO DAILY tab 05/09/23 [Rx] Cyclobenzaprine [Flexeril] 5 mg PO TID #30 tab 05/09/23 [Rx] predniSONE 0 mg PO DIRECTED #15 tab 05/09/23 [Rx] Follow up Appointment(s)/Referral(s): Clarence Qureshi DO [Primary Care Provider] - 1-2 days (Please follow up with Dr. Qureshi. ) Activity/Diet/Wound Care/Special Instructions: Outpatient neck physical therapy Heating pad neck Discharge Disposition: HOME SELF-CARE
[2023-05-10] MEDS ORDERED: ASPIRIN 81 MG PO SCH (09:00)
== END 2023-05-09 15:46 | disposition home or self-care (01) ==
LOC: EC 13:56 → 3SCARD 16:13 → INTOOBSV 16:13 → 3SCARD 16:33 → UNDODISIN 05-09 15:46
PROVIDERS: ADMIT Hospitalist; ATTEND Hospitalist
DX: M54.2 Cervicalgia (principal); R29.810 Facial weakness; R68.84 Jaw pain; L44.0 Pityriasis rubra pilaris; E11.9 Type 2 diabetes mellitus without complications; N40.0 Benign prostatic hyperplasia without lower urinary tract symptoms; I08.1 Rheumatic disorders of both mitral and tricuspid valves; N28.9 Disorder of kidney and ureter, unspecified; E78.5 Hyperlipidemia, unspecified; I10 Essential (primary) hypertension; M47.812 Spondylosis without myelopathy or radiculopathy, cervical region; Z91.040 Latex allergy status; Z79.82 Long term (current) use of aspirin; Z79.84 Long term (current) use of oral hypoglycemic drugs; Z79.899 Other long term (current) drug therapy; Z85.528 Personal history of other malignant neoplasm of kidney; Z90.49 Acquired absence of other specified parts of digestive tract; Z87.891 Personal history of nicotine dependence; Z98.890 Other specified postprocedural states
CPT/HCPCS: 96372 ×2; 99285; 36415; 94760; 93005; 93306; 97162; 97166; 92610; 92523; 80061; 80053; 85652; 82550; 84484; 85025; 85610; 85730; 86140; 86431; 83036; 72050; 71046; 93880; 72125; 70450; G0378; J1650 ×2

== ENCOUNTER 2023-09-07 21:27 | Emergency (ER) | payer MEDICARE, BC ==
[2023-09-07 21:44] VITALS: TEMP 97.9
--- NOTE | 2023-09-07 21:56 | ED ---
General Adult HPI - General Chief complaint: Urogenital Stated complaint: Unable to Urinate, Constipation Time Seen by Provider: 09/07/23 21:31 Source: patient Mode of arrival: ambulatory Limitations: no limitations - History of Present Illness Initial comments: Dictation was produced using [employer] dictation software. please excuse any grammatical, word or spelling errors. Chief Complaint: 83-year-old male presents with urinary retention and constipation History of Present Illness: 83-year-old male presents emergency Department with 3 days of constipation. He also has not been able to empty his bladder since 4:30 PM today. Patient denies any history of neurologic disorder. Patient has any nausea vomiting. He does complain of some rectal pain. Hasn't had a bowel movement in 3 days. Denies any nausea vomiting. No fever or constitutional symptoms. Denies any abdominal pain The ROS documented in this emergency department record has been reviewed and confirmed by me. Those systems with pertinent positive or negative responses have been documented in the HPI. All other systems are other negative and/or noncontributory. - Related Data Home Medications Medication Instructions Recorded Confirmed Rosuvastatin Calcium [Crestor] 40 mg PO DAILY 03/19/17 05/08/23 Tamsulosin HCl [Flomax] 0.4 mg PO DAILY 05/05/21 05/08/23 metFORMIN HCL [Glucophage] 500 mg PO BID 05/05/21 05/08/23 Ascorbic Acid [Vitamin C] 500 mg PO DAILY 05/08/23 05/08/23 Cholecalciferol [Vitamin D3 (25 25 mcg PO DAILY 05/08/23 05/08/23 Mcg = 1000 Iu)] Loratadine 10 mg PO DAILY 05/08/23 05/08/23 Zinc Gluconate [Zinc] 50 mg PO DAILY 05/08/23 05/08/23 Previous Rx's Medication Instructions Recorded Aspirin 81 mg PO DAILY tab 05/09/23 Cyclobenzaprine [Flexeril] 5 mg PO TID #30 tab 05/09/23 predniSONE 0 mg PO DIRECTED #15 tab 05/09/23 Lactulose 10 gm PO BID PRN #60 ml 09/08/23 Allergies Allergy/AdvReac Type Severity Reaction Status Date / Time latex Allergy Unknown IRRITATED Verified 09/07/23 21:32 SKIN Review of Systems ROS Statement: Those systems with pertinent positive or pertinent negative responses have been documented in the HPI. ROS Other: All systems not noted in ROS Statement are negative. 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 , ENLARGED PROSTATE., CONJUNCTIVA RED AND EYES WATER- PT STATES APPT TO SEE EYE History of Any Multi-Drug Resistant Organisms: None Reported Past Surgical History: Cholecystectomy Additional Past Surgical History / Comment(s): TOE SURGERY, COLONOSCOPY Past Anesthesia/Blood Transfusion Reactions: No Reported Reaction Past Psychological History: No Psychological Hx Reported Smoking Status: Former smoker Past Alcohol Use History: Rare Past Drug Use History: None Reported - Past Family History Mother Family Medical History: No Reported History General Exam - General Exam Comments Initial Comments: PHYSICAL EXAM: General Impression: Alert and oriented x3, not in acute distress HEENT: Normocephalic atraumatic, extra-ocular movements intact, pupils equal and reactive to light bilaterally, mucous membranes moist. Cardiovascular: Heart regular rate and rhythm Chest: Able to complete full sentences, no retractions, no tachypnea Abdomen: abdomen soft, non-tender, non-distended, no organomegaly Musculoskeletal: Pulses present and equal in all extremities, no peripheral edema Motor: no focal deficits noted Neurological: CN II-XII grossly intact, no focal motor or sensory deficits noted Skin: Intact with no visualized rashes Psych: Normal affect and mood Limitations: no limitations Course Vital Signs 09/07/23 21:28 Temperature 97.9 F Pulse Rate 91 Respiratory 18 Rate Blood Pressure 135/94 O2 Sat by Pulse 98 Oximetry Medical Decision Making - Medical Decision Making Was pt. sent in by a medical professional or institution (, PA, [employer], urgent care, hospital, or care home...) When possible be specific @ -No Did you speak to anyone other than the patient for history (EMS, parent, family, police, friend...)? What history was obtained from this source @ -No Did you review nursing and triage notes (agree or disagree)? Why? @ -I reviewed and agree with nursing and triage notes Were old charts reviewed (outside hosp., previous admission, EMS record, old EKG, old radiological studies, urgent care reports/EKG's, care home records)? Report findings @ -No old charts were reviewed Differential Diagnosis (chest pain, altered mental status, abdominal pain women, abdominal pain men, vaginal bleeding, musculoskeletal, weakness, fever, dyspnea, syncope, headache, dizziness, GI bleed, back pain, seizure, CVA, palpatations, mental health)? @ - EKG interpreted by me (3pts min.). @ -None done X-rays interpreted by me (1pt min.). @ -XRay shows nonobstructive bowel gas pattern CT interpreted by me (1pt min.). @ -None done U/S interpreted by me (1pt. min.). @ -None done What testing was considered but not performed or refused? (CT, X-rays, U/S, labs)? Why? @ -None What meds were considered but not given or refused? Why? @ -None Did you discuss the management of the patient with other professionals (professionals i.e. , PA, [employer], lab, RT, psych nurse, sr. social media & mobile manager, mechanical specialist, teacher, chemical instrumentation officer, protective services case worker)? Give summary @ -No Was smoking cessation discussed for >3mins.? @ -No Was critical care preformed (if so, how long)? @ -No Were there social determinants of health that impacted care today? How? (Homelessness, low income, unemployed, alcoholism, drug addiction, transportation, low edu. Level, literacy, decrease access to med. care, nursing home, rehab)? @ -No Was there de-escalation of care discussed even if they declined (Discuss DNR or withdrawal of care, Hospice)? DNR status @ -No What co-morbidities impacted this encounter? (DM, HTN, Smoking, COPD, CAD, Cancer, CVA, ARF, Chemo, Hep., AIDS, mental health diagnosis, sleep apnea, morbid obesity)? @ -None Was patient admitted / discharged? Hospital course, mention meds given and route, prescriptions, significant lab abnormalities, going to OR and other pertinent info. @ -83-year-old male presents emergency department for constipation and urinary retention. Bladder scan showed 7 50 mL of retained urine. Lew catheter was placed with resolution of urinary symptoms. Patient also constipated clinically. Abdominal x-ray shows stool burden. No high-risk features in regards to his abdominal examination. Patient given multiple enemas with some improvement of symptoms is also given lactulose. Patient given prescription for lactulose advised follow-up with primary care doctor for outpatient management of constipation. Patient also given urology follow-up for urinary retention Undiagnosed new problem with uncertain prognosis? @ -No Drug Therapy requiring intensive monitoring for toxicity (Heparin, Nitro, Insulin, Cardizem)? @ -No Were any procedures done? @ -No Diagnosis/symptom? Acute, or Chronic, or Acute on Chronic? Uncomplicated (without systemic symptoms) or Complicated (systemic symptoms)? @ -1. Urinary retention, 2. Constipation Side effects of treatment? @ -No Exacerbation, Progression, or Severe Exacerbation? @ -No Poses a threat to life or bodily function? How? (Chest pain, USA, DC, pneumonia, PE, COPD, DKA, ARF, appy, cholecystitis, CVA, Diverticulitis, Homicidal, Suicidal, threat to staff... and all critical care pts) @ -yes - Lab Data Lab Results 09/07/23 Range/Units 21:53 Urine Color Light Yellow Urine Appearance Clear (Clear) Urine pH 5.0 (5.0-8.0) Ur Specific Bradford 1.013 (1.001-1.035) Urine Protein Negative (Negative) Urine Glucose (UA) Negative (Negative) Urine Ketones Negative (Negative) Urine Blood Negative (Negative) Urine Nitrite Negative (Negative) Urine Bilirubin Negative (Negative) Urine Urobilinogen <2.0 (<2.0) mg/dL Ur Leukocyte Esterase Negative (Negative) Disposition Clinical Impression: Constipation, Urinary retention Disposition: HOME SELF-CARE Condition: Good Instructions (If sedation given, give patient instructions): Urinary Retention in Men (ED), Constipation (ED) Prescriptions: Lactulose 10 gm PO BID PRN #60 ml PRN Reason: Constipation Is patient prescribed a controlled substance at d/c from ED?: No Referrals: Clarence Qureshi DO [Primary Care Provider] - 1-2 days Jefe Martinez MD [STAFF PHYSICIAN] - 1-2 days Time of Disposition: 00:28
[2023-09-07 22:13] LABS: Appearance,Urine Clear (Clear); Bilirubin,Urine Negative (Negative); Blood,Urine Negative (Negative); Color,Urine Light Yellow; Glucose,Urine (UA) Negative (Negative); Ketones,Urine Negative (Negative); Leukocyte Esterase,Urine Negative (Negative); Nitrite,Urine Negative (Negative); Protein,Urine Negative (Negative); Specific Gravity,Urine 1.013 (1.001-1.035); Urobilinogen,Urine <2.0 mg/dL (<2.0)
[2023-09-07] MEDS ORDERED: LACTULOSE 20 GM/30 ML CUP PO ONE (23:01)
[2023-09-07] MEDS ORDERED: NA PHOS,M-B/NA PHOS,DI-BA 133 ML ENEMA RECTAL STA (23:19)
--- NOTE | 2023-09-07 23:50 | XR ---
EXAM: XR Abdomen, 1 View CLINICAL HISTORY: ITS.REASON XR Reason: constipation TECHNIQUE: Frontal supine view of the abdomen/pelvis. COMPARISON: No previous studies. FINDINGS: Gastrointestinal tract: Moderate quantity of stool throughout the colon. Nonspecific bowel gas pattern. No dilation. Bones/joints: Osteopenia. Gentle levoscoliosis. Soft tissues: Scattered surgical clips are noted in the upper abdomen. IMPRESSION: 1. Moderate quantity of stool throughout the colon. 2. Nonspecific bowel gas pattern.
[2023-09-08 01:37] VITALS: BP 135/71; PULSE 96; RESP 19
== END 2023-09-08 01:35 | disposition home or self-care (01) ==
LOC: EC 21:27
DX: K59.00 Constipation, unspecified (principal); R33.9 Retention of urine, unspecified; E11.9 Type 2 diabetes mellitus without complications; I10 Essential (primary) hypertension; E78.5 Hyperlipidemia, unspecified; Z90.49 Acquired absence of other specified parts of digestive tract; Z79.84 Long term (current) use of oral hypoglycemic drugs; Z79.899 Other long term (current) drug therapy; Z91.040 Latex allergy status; Z87.891 Personal history of nicotine dependence
CPT/HCPCS: 51702; 51798; 74018; 81003; 99284

== ENCOUNTER → 2024-04-19 | Outpatient (CLI) | payer MEDICARE, BC ==
--- NOTE | 2024-04-19 17:49 | US ---
EXAMINATION TYPE: US kidneys/renal and bladder DATE OF EXAM: 04/19/2024 COMPARISON: CT 04/21/2023, US 05/15/2018 CLINICAL INDICATION: Male, 84 years old with history of N18.9 CHRONIC KIDNEY DISEASE, UNSPECIFIED; CK D, hx left nephrectomy in 2017 EXAM MEASUREMENTS: Right Kidney: 11.2 x 5.8 x 4.6 cm Left Kidney: Surgically absent. Right Kidney: Renal pelvis appears dilated. *2 hyperechoic foci seen within the lower pole: #1 measures 0.4 x 0.3 x 0.4 cm. #2 measures 0.5 x 0.5 x 0.4 cm. Hypoechoic area seen superior pole measurin.2 x 4.2 x 3.7 cm. Left Kidney: Surgically absent. Bladder: Posterior wall has irregular/jagged appearance. Bilateral Jets seen: Right jet was seen. Hx left nephrectomy. IMPRESSION: 1. Mild right hydronephrosis. Correlate for obstructive uropathy. 2. Multiple right nonobstructing renal calculi. 3. Irregular wall appearance of the urinary bladder possibly related to prostatomegaly. Correlate wi th direct visualization. 4. Surgically absent left kidney.
== END | disposition home or self-care (01) ==
LOC: RADUSWWP 15:11
PROVIDERS: ATTEND Family Medicine
DX: N18.9 Chronic kidney disease, unspecified (principal); N13.2 Hydronephrosis with renal and ureteral calculous obstruction; Z90.5 Acquired absence of kidney
CPT/HCPCS: 76770

== ENCOUNTER → 2024-06-17 | Outpatient (CLI) | payer MEDICARE, BC ==
--- NOTE | 2024-07-12 16:04 | CONS ---
CONSULTATION REASON FOR CONSULTATION: 84-year-old gentleman has been evaluated in Sleep Center for possible obstructive sleep apnea-hypopnea syndrome. HISTORY OF PRESENT ILLNESS: Sleep-awake evaluation: The patient's usual sleep schedule is from around 10:30- midnight until around 8:00 a.m.-10:00 a.m. Sometimes, the patient has difficulties for falling asleep, although no TV in bedroom. The patient sleeps on the back position with snoring and witnessed episodes of stopped breathing during the sleep by his son. The patient wakes up from sleep 5 times with 4 episodes of nocturia. Positive history of sleeptalking and heartburn. No history of hypnagogic hallucinations, sleep paralysis, or cataplexy. In the morning, the patient wakes up tired; has difficulties to paying attention, falling asleep; has problems with memory, concentration, and irritability. [place] Sleepiness Scale increased to 11. The patient may take naps during the day. PAST MEDICAL HISTORY: Positive for diabetes mellitus. PAST SURGICAL HISTORY: Cholecystectomy, left nephrectomy. MEDICATIONS: Metformin 500 mg twice a day. SOCIAL HISTORY: Positive for smoking in the past, quit about 25 years ago. Alcohol consumption, occasional. FAMILY HISTORY: Heart problems, stroke. REVIEW OF SYSTEMS: Multiple awakenings from sleep, sleepiness during the day. No fevers. No double vision. No recent chest pain. No shortness of breath. No abdominal pain. No bleeding episodes. No blood in the urine. No seizure episodes. PHYSICAL EXAMINATION: GENERAL: 84-year-old gentleman without distress. VITAL SIGNS: BP 107/69, HR 78, RR 16, height 5 feet 3/4 inches, weight 204.4 pounds, body mass index 33.2, temperature 97.5, oxygen saturation at room air 97%. HEENT: PERRLA, EOMI, evaluation of oropharynx showed tongue protrudes midline. Oropharynx, extremely low position of soft palate, Mallampati 4. NECK: Supple, no JVD. Thyroid is not palpable. 14 inches in circumference. LUNGS: Clear to percussion and to auscultation. Good air exchange. No wheezing or rhonchi. HEART: S1 and S2, regular. No murmurs, gallops, or rubs. ABDOMEN: Soft and nontender. Bowel sounds are present. No organomegaly appreciated. Slightly obese. EXTREMITIES: No clubbing or cyanosis. FUNERAL HOME MAKEUP ARTIST: Awake, alert, and oriented x3. Cranial nerves 2 to 7 intact. There is no fasciculation or atrophy noted. No focal deficits observed. IMPRESSION: 1. Snoring, witnessed episodes of stopped breathing during the sleep, extremely low position of soft palate, multiple awakenings from sleep. Obstructive sleep apnea- hypopnea syndrome. 2. Diabetes mellitus. 3. Status post left nephrectomy. 4. Status post cholecystectomy. 5. Mild obesity, BMI 33.2. PLAN: 1. Polysomnography for evaluation of the patient's breathing during the sleep. 2. Following plan after reading sleep study. 3. Sleep hygiene with regular time in bed for at least 8 hours. 4. Precautions related to driving. No driving if feeling sleepiness. Thank you very much for referring this patient for consultation. Sincerely, Saul Grier MD, PhD, FAASM Diplomat of [employer] Sleep Medicine Board of [employer] [facility] [place]. MMODL / IJN: [id number] /
== END ==
LOC: 3 N SLEEP 14:25
PROVIDERS: ATTEND Internal Medicine
CPT/HCPCS: 99211

== ENCOUNTER 2024-06-20 19:58 | Outpatient (CLI) | payer MEDICARE, BC ==
--- NOTE | 2024-06-23 14:23 | P.PCN ---
Description of Procedure: POLYSOMNOGRAPHY REPORT PROCEDURE(S)/DATE(S): Polysomnography 06/20/2024 CLINICAL: Patient has been seen in the sleep center for evaluation of obstructive sleep apnea-hypopnea syndrome. Please see my consultation. Sleep study has been done for evaluation of patient breathing during the sleep. PROCEDURE: The standard montage for clinical polysomnography included the electroencephalogram, the electrooculogram, the mentalis surface electromyography and Lead II cardiography. The respiratory battery consisted of measurements of nasal/buccal air flow, pressure transducer measurements from nose, thoracic and/or abdominal effort and intercostal surface electromyography. Video monitoring has been done to check for any parasomnia events. Nocturnal oxyhemoglobin saturations were obtained by finger oximetry. Step-ferguson titration with positive airway pressure was utilized to control the respiratory events, if necessary. RESULTS: During the diagnostic sleep study sleep efficiency was decreased to 77.3%. Latency to sleep onset was short 5.0 min. Sleep architecture showed stage NI was increased to 12.1%, Delta sleep was extremely short 0.6%, REM sleep was short 7.9%. Respiratory channel showed 115 obstructive apneas, 1 mixed apneas, 2 central apneas, 336 hypopneas with lowest oxygen level 51%. Total apnea hypopnea index was 84.7. Heart rate was in the range between 33 and 110, average 65, some premature construction documented. EMG showed no significant periodic limb movements. IMPRESSIONS: 1. Severe obstructive sleep apnea hypopnea syndrome with extremely severe oxygen saturation. 2. No significant periodic limb movements have been documented. Please see other impressions from consultation PLAN: 1. The patient will have PAP titration for correction of respiratory abnormalities during the sleep. 2. Losing weight program. 3. Sleep hygiene with regular time in bed for at least 7-1/2 hours. 4. No driving if feeling sleepiness. Thank you very much for allowing me to participate in the management of your patient. Sincerely, Saul Grier MD, PhD, FAASM. Diplomat of [place] [employer], Sleep Medicine Board by [place] [employer] Assistance Representative of [facility] [place]
== END 2024-06-21 05:55 | disposition home or self-care (01) ==
LOC: 3 N SLEEP 19:58
PROVIDERS: ATTEND Internal Medicine
CPT/HCPCS: 95810

== ENCOUNTER 2024-06-30 19:29 | Outpatient (CLI) | payer MEDICARE, BC ==
--- NOTE | 2024-07-01 11:47 | P.PCN ---
Description of Procedure: CLINICAL: Titration with positive air pressure has been done for correction of respiratory abnormalities during sleep. DESCRIPTION OF PROCEDURE: The standard montage for clinical polysomnography included the electroencephalogram, the electrocardiogram, the mentalis surface electromyography and Lead II cardiography. The respiratory battery consisted of measurements of nasal /buccal air flow, pressure transducer measurements from the nose, thoracic and /or abdominal effort and intercostal surface electromyography. Video monitoring has been done to check for any parasomnia events. Nocturnal oxyhemoglobin saturations were obtained by finger oximetry. Step-ferguson titration with positive airway pressure was utilized to control respiratory events. Raw data of sleep recording has been reviewed and is adequate. RESULTS: Sleep efficiency was in high range 95.1%. Latency to sleep onset was short 6.5 minutes.]. Sleep architecture showed stage N1 was extremely short 0.8%, Delta sleep was short 3.8%, REM sleep decreased to 15.2%. Heart rate was minimum 54 and 66, average 59 BPM. EMG showed 82.2 periodic limb movements per hour with 0.2 micriarousals per hour. PAP titration have been done with CPAP up to the pressure 11 cm H2O. The best results were at the pressure 10 cm H2O. Apnea hypopnea index reduced to 0. IMPRESSION: 1. Severe obstructive sleep apnea hypopnea syndrome on controle with PAP treatment. 2. Severe periodic limb movements have been documented. Please see other impressions from consultation. PLAN: 1. The patient will have treatment with positive air pressure equipment with the level of pressure AutoPap 5-11 cm H2O and should use it every night for the whole night. 2. Watching and losing weight. 3. Sleep hygiene with regular time in bed for at least 8 hours. 4. No driving if feeling any sleepiness. 5. I will see the patient for follow up visit to explain the results of the test, recommendations, check compliance with treatment and make any necessary adjustment related to mask fitting, pressure and humidification. 6. Please check iron profile including ferritin level. Low level of iron may increase risk for periodic limb movements Thank you very much for allowing me to participate in the management of your patient. Sincerely, Saul Grier MD, PhD, FAASM Diplomat of [employer] Sleep Medicine Board of [employer] [facility] [place]
== END 2024-07-01 05:45 | disposition home or self-care (01) ==
LOC: 3 N SLEEP 19:29
PROVIDERS: ATTEND Internal Medicine
CPT/HCPCS: 95811

== ENCOUNTER → 2024-09-20 | Outpatient (CLI) | payer MEDICARE, BC ==
[2024-09-20 14:55] VITALS: BP 115/69; PULSE 78; RESP 16; TEMP 97.7
--- NOTE | 2024-09-20 15:24 | P.PROGSL ---
Subjective DATE: 09/20/2024 FOLLOW UP VISIT. Patient with obstructive sleep apnea hypopnea syndrome return to sleep center for follow-up visit. Recently patient had sleep study which documented obstructive sleep apnea hypopnea syndrome. Patient was initiated on PAP therapy and today is first visit after treatment was started. Patient was able to use PAP equipment every night for the whole night. Patient feels that pressure is too high during the night. [place] sleepiness scale is slightly increased to 11. I checked information from PAP unit. PAP unit pressure 5-11, average 9.8 cm H2O. Usage is 100% for more then 4 hours, average 7.5 hours per night. Leak is is extremely high 114.6 l/m, which is in acceptable range. Apnea Hypopnea Index is significantly increased to 34.3, which is normal. MEDICATIONS:1. Metformin 500 mg twice a day During physical exam: GENERAL: A pleasant patient without any distress. VITAL SIGNS: Please see below, weight 207 pounds. HEENT: PERRLA, EOMI.low position of soft palate, Mallapati 4 . NECK: Supple. No JVD. LUNGS: Clear to percussion and to auscultation. Good air exchange. No wheezing or rhonchi. HEART: S1, S2 regular. ABDOMEN: Soft and nontender. Obese EXTREMITIES: No clubbing or cyanosis. ELECTRO MECHANICAL SOLAR TECHNICIAN: Awake, alert, and oriented x3. No focal deficit. Impressions: 1. Severe obstructive sleep apnea-hypopnea syndrome with extremely high apnea hypopnea index of 84.7 during polysomnogram. Patient demonstrated great compliance with treatment. Significant leak from the mask. Apnea hypopnea index improved but still in very high range. 2. Obesity. 3. Diabetes mellitus. 4. Status post left nephrectomy. 5. Status post cholecystectomy. Plan: 1. Continue using PAP equipment every night for the whole night. I adjusted RAMP to autimatic regimen. If patient will wake up in the middle of the night pressure will go down and he will feel more comfortable. 2. To change air filter at least 1-2 times per month. 3. PAP unit should stay lower then position of the head. 4. Advised patient to remove all remaining water from humidifier canister daily and make it dry after each usage. Refill canister with fresh distilled water before each usage. 5. Sleep hygiene with regular time in bed for at least 8 hours. 6. Precautions related to driving. No driving if feel any sleepiness. 7. I will maintain prescription for PAP supplies including mask, tube, filters. 8. Follow up visit in 2 months or earlier if patient has any problems. 9. Watching weight. Thank you very much for allowing me to participate in the management of your patient. Saul Grier MD, PhD, FAASM. Diplomat of [place] [employer], Sleep Medicine Board by [employer] [facility] [place] Objective - Vital Signs Vital Signs: Vital Signs Temp 97.7 F 09/20/24 14:54 Pulse 78 09/20/24 14:54 Resp 16 09/20/24 14:54 BP 115/69 09/20/24 14:54 Pulse Ox 97 09/20/24 14:54 FiO2 Intake & Output 09/19/24 09/20/24 09/20/24 18:59 06:59 18:59 Weight 93.894 kg Home Medications: Home Medications Medication Instructions Recorded Confirmed Type Rosuvastatin Calcium [Crestor] 40 mg PO DAILY 03/19/17 05/08/23 History Tamsulosin HCl [Flomax] 0.4 mg PO DAILY 05/05/21 05/08/23 History metFORMIN HCL [Glucophage] 500 mg PO BID 05/05/21 05/08/23 History Ascorbic Acid [Vitamin C] 500 mg PO DAILY 05/08/23 05/08/23 History Cholecalciferol [Vitamin D3 (25 25 mcg PO DAILY 05/08/23 05/08/23 History Mcg = 1000 Iu)] Loratadine 10 mg PO DAILY 05/08/23 05/08/23 History Zinc Gluconate [Zinc] 50 mg PO DAILY 05/08/23 05/08/23 History Aspirin 81 mg PO DAILY tab 05/09/23 Rx Cyclobenzaprine [Flexeril] 5 mg PO TID #30 tab 05/09/23 Rx predniSONE 0 mg PO DIRECTED #15 tab 05/09/23 Rx Lactulose 10 gm PO BID PRN #60 ml 09/08/23 Rx
== END ==
LOC: 3 N SLEEP 14:02
PROVIDERS: ATTEND Internal Medicine
DX: G47.33 Obstructive sleep apnea (adult) (pediatric) (principal); E66.9 Obesity, unspecified; E11.9 Type 2 diabetes mellitus without complications; Z98.890 Other specified postprocedural states; Z90.49 Acquired absence of other specified parts of digestive tract; Z99.89 Dependence on other enabling machines and devices; Z90.5 Acquired absence of kidney; Z91.040 Latex allergy status; Z87.891 Personal history of nicotine dependence; Z79.84 Long term (current) use of oral hypoglycemic drugs; Z68.39 Body mass index [BMI] 39.0-39.9, adult
CPT/HCPCS: 99212

== ENCOUNTER → 2024-12-21 | Outpatient (CLI) | payer MEDICARE, BC ==
--- NOTE | 2024-12-22 08:49 | MR ---
EXAMINATION TYPE: MR brain wo con DATE OF EXAM: 12/21/2024 7:42 PM COMPARISON: None. CLINICAL INDICATION: Male, 84 years old with history of G31.84 MILD COGNITIVE IMPAIRMENT, Memory Prob lems TECHNIQUE: Multiplanar, multiecho imaging on a 3.0 [place] magnet is performed through the brain. Stud y is performed within 24 hours of arrival to the hospital.Multiplanar, multiecho imaging on a 3.0 [place] magnet is performed through the knee. IV Contrast: mL (None, if empty) FINDINGS: The craniovertebral junction is normal. The pituitary is normal. Diffusion-weighted imaging is performed. No abnormal hyperintensity is present to suggest an acute i ntracranial infarct or acute ischemic change. Minimal white matter hyperintensity on T2-weighted sequences present, likely on the basis of chronic white matter ischemic change. This appears greater on the inversion recovery sequences rate Ventricles and sulci are prominent for the patient age. IMPRESSION: 1. 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 [facility], , 12/22/2024 8:47 AM
== END | disposition home or self-care (01) ==
LOC: RADMRIMAIN 18:58
PROVIDERS: ATTEND Psychiatry & Neurology Neurology
DX: I67.82 Cerebral ischemia (principal)
CPT/HCPCS: 70551